=== PATIENT | male | born 1980 | race Two or more races ===

== ENCOUNTER 2021-09-12 19:22 | Emergency (ER) | payer OTHER, SELFPAY ==
[2021-09-12 19:54] VITALS: BP 99/62; PULSE 81; RESP 18; TEMP 36.3; O2SAT 100; BMI 22.6
[2021-09-12 21:27] VITALS: BP 124/77; PULSE 81; TEMP 36.4; O2SAT 98
--- NOTE | 2021-09-12 21:56 | ED_ITS ---
HPI - General Adult General Chief complaint: Skin/Abscess/Foreign Body Stated complaint: ? Rash Time Seen by Provider: 09/12/21 21:56 Source: patient Mode of arrival: ambulatory Limitations: no limitations History of Present Illness HPI narrative: 41-year-old male presenting to the emergency department with complaints of a rash to his left upper extremity, on the inside of the elbow, patient tells me this is been going on for 3 days and is very itchy. He tells me that while in the waiting room he started experiencing nausea, vomiting and some abdominal discomfort. Tells me he vomited few times, vomit did not come taken blood. He tells me he was feeling fine before he was here. He reports he has not eaten much today. Patient is homeless. Denies fevers, chills, chest pain, shortness of breath, changes in bowel habits, changes in urination, recent sick contacts. Onset (ago): day(s) (3) Related Data Previous Rx's Medication Instructions Recorded prednisone 20 mg tablet 40 mg PO DAILY 5 days #10 tabs 09/12/21 ondansetron 4 mg disintegrating 4 mg PO Q6H PRN nausea and 09/13/21 tablet vomiting #14 tabs Allergies Allergy/AdvReac Type Severity Reaction Status Date / Time No Known Allergies Allergy Unverified 10/24/19 17:29 Review of Systems Review of Systems: Constitutional : No Weight loss, No Fever, No Chills, No Fatigue, No Malaise ENT/Mouth : No sore throat, No Rhinorrhea Eyes: No Eye Pain, No Swelling, No Redness Cardiovascular : No Chest Pain, No SOB, No Dyspnea on Exertion, No Orthopnea, No Edema, No Palpitations Respiratory : No Cough, No Sputum, No Wheezing Gastrointestinal : + Nausea, + Vomiting, No Diarrhea, No Constipation, + abdominal Pain, No Hematochezia, No Melena Genitourinary : No Dysuria, No Urinary Frequency, No Hematuria, Musculoskeletal : No joint pain, No Myalgias, No Joint Swelling Skin : No Skin Lesions, + rash Neuro : No Weakness, No Numbness, No Dizziness, No Headache All other systems reviewed and are negative Yes all other systems are reviewed and are negative [facility] Past Medical History Attestation statement: The following information was validated with the patient. Source: old records reviewed and nursing notes reviewed Social History Social History Advance Directives: No Advance Directives Information Provided: No Physical Exam ED Vital Signs: Vital Signs - 24 hr 09/12/21 19:54 09/12/21 21:27 Temperature 97.3 F 97.6 F Pulse Rate 81 81 Respiratory Rate 18 Blood Pressure 99/62 124/77 Pulse Oximetry 100 98 Oxygen Delivery Method Room Air Room Air BMI result Body Mass Index 22.6 vss Appearance: Alert.? Oriented X3.? No acute distress.? Head: Normocephalic, atraumatic, no step-offs or deformities Neck: Normal inspection.? Neck supple.? CVS: Normal heart rate and rhythm.? Pulses normal.? Respiratory: No respiratory distress.? Breath sounds normal.? Abdomen: Soft and nontender.? Skin: Skin warm and dry.? Normal skin color.? Normal skin turgor.? Extremities: No lower extremity edema.? No calf ttp. 5/5 strength to bilateral upper and lower extremities + left inner elbow with errythema and excoriations. Neuro: Oriented X 3.? No motor deficit.? No sensory deficit. CN 2-12 intact Course Reevaluation(s) Reevaluation #1: Patient with slight leukocytosis likely secondary to nausea and vomiting. No acute electrolyte abnormalities requiring intervention. Patient is feeling better after Zofran. Patient tolerating p.o. Time: 01:55 Reevaluation #2: Upon re-evaluation patient continues to have no abdominal tenderness to palpation. Tells us he is feeling much better. He is tolerating p.o., drinking a diane pedrito and eating a few sandwiches. At this time patient will be discharged home with Zofran, prednisone for rash. I feel comfortable discharge home Time: 01:59 Medical Decision Making [facility] Narrative Medical decision making narrative: [id number] 41-year-old male presents with rash times 3 days. Also tells me he has been experiencing nausea vomiting and abdominal discomfort since he got to the emergency department however he tells me he has not eaten much today. Physical exam with slight erythema to the inside of left elbow, no overlying calor, some excoriations from patient it itching. Full range of motion to bilateral elbows. 2+ radial pulses equal bilateral. Likely rash or contact dermatitis, unlikely septic joint. No pain with palpation of abdomen, unlikely acute abdomen, appendicitis, diverticulitis or cholecystitis. Plan at this time to obtain basic labs, urine, will give Zofran for nausea and vomiting. Medical Records Medical records reviewed: Yes I reviewed the patient's medical records. Lab Data Lab results reviewed: Yes I reviewed the patient's lab results. Result diagrams: 09/12/21 23:13 09/12/21 23:13 Labs: Lab Results 09/12/21 09/12/21 Range/Units 23:13 23:13 WBC 12.8 H (4.8-10.8) X10*3/uL RBC 3.74 L (4.60-5.80) X10*6/uL Hgb 12.6 L (14.0-18.0) g/dl Hct 38.6 L (42.0-52.0) % MCV 103.2 H (80.0-98.0) fL MCH 33.7 H (27.0-33.0) pg MCHC 32.6 (31.0-36.0) g/dl RDW 11.9 (11.0-16.0) % Plt Count 286 (160-400) X10*3/uL MPV 9.5 (9.4-12.4) fL Immature Gran % (Auto) 0.2 (0.0-0.4) % Neut % (Auto) 80.8 H (45-73) % Lymph % (Auto) 12.4 L (20-40) % [place] % (Auto) 3.7 (2-11) % Eos % (Auto) 2.7 (0-4) % Baso % (Auto) 0.2 (0-2) % Lymph # (Auto) 1.6 (1.2-4.9) X10*3/uL [place] # (Auto) 0.5 (0.1-1.2) X10*3/uL Eos # (Auto) 0.3 (0.0-0.4) X10*3/uL Baso # (Auto) 0.0 (0.0-0.2) X10*3/uL Abs Immat Gran (auto) 0.03 (0.00-0.03) X10*3/uL Absolute Neuts (auto) 10.4 H (2.0-8.3) x10*3/uL Absolute Nucleated RBC 0.000 (0.0-0.012) X10*3/uL Nucleated RBC % (auto) 0.0 (0.0-0.2) /100WBC Sodium 142 (135-145) mmol/L Potassium 3.9 (3.3-5.1) mmol/L Chloride 105 (96-108) mmol/L Carbon Dioxide 29 (22-29) mmol/L Anion Gap 12 (12-20) BUN 15 (9-16) mg/dL Creatinine 0.83 (0.5-1.4) mg/dL Estim Creat Clear Calc 105.2 Estimated GFR > 60 Random Glucose 92 (60-115) mg/dL Calcium 8.8 (8.4-10.2) mg/dL Total Bilirubin 1.3 H (0.0-1.0) mg/dL AST 17 (5-37) U/L ALT 15 (0-40) U/L Alkaline Phosphatase 62 (39-117) U/L Total Protein 6.8 (6.5-8.0) g/dL Albumin 4.3 (3.5-5.0) g/dL Lipase 21 (8-78) U/L Critical Care Time Critical Care Time Critical Care Time: No Discharge Plan Discharge Clinical Impression: Rash, Epigastric pain, Nausea & vomiting Patient Disposition: Home, Self-Care Additional Instructions: Take your medications as prescribed. If you were prescribed antibiotics today, it is important that you take your medication to their entirety, do not skip any doses, do not finish them early. Follow-up with your primary care provider this week. Return to the emergency department with new or worsening symptoms. Such as fevers, chills, chest pain, shortness of breath, nausea, vomiting, dizziness, headache, vision changes, lethargy In case of emergency call 911 Prescriptions: New prednisone 20 mg tablet 40 mg PO DAILY 5 Days Qty: 10 0RF ondansetron 4 mg tablet,disintegrating 4 mg PO Q6H PRN (Reason: nausea and vomiting) Qty: 14 0RF Referrals: Physician,None [Primary Care Provider] - 2 days Stand Alone Forms: Work/School Release
[2021-09-12] MEDS: Ondansetron ODT 4 MG TAB.RAPDIS TRANSLINGU (22:29)
[2021-09-12 23:18] LABS: Basophils Percent Auto 0.2 % (0-2); Eosinophils Absolute Auto 0.3 X10*3/uL (0.0-0.4); Eosinophils Percent Auto 2.7 % (0-4); Hematocrit 38.6 % (42.0-52.0); Hemoglobin 12.6 g/dl (14.0-18.0); Imm Gran Abs Auto 0.03 X10*3/uL (0.00-0.03); Imm Gran Pct Auto 0.2 % (0.0-0.4); Lymphocytes Absolute Auto 1.6 X10*3/uL (1.2-4.9); Lymphocytes Percent Auto 12.4 % (20-40); MANUAL DIFF FLAG NO; Mean Corpuscular HGB Conc 32.6 g/dl (31.0-36.0); Mean Corpuscular Hemoglobin 33.7 pg (27.0-33.0); Mean Corpuscular Volume 103.2 fL (80.0-98.0); Mean Platelet Volume 9.5 fL (9.4-12.4); Monocytes Absolute Auto 0.5 X10*3/uL (0.1-1.2); Monocytes Percent Auto 3.7 % (2-11); Neutrophils Absolute Auto 10.4 x10*3/uL (2.0-8.3); Neutrophils Percent Auto 80.8 % (45-73); Platelet Count 286 X10*3/uL (160-400); Red Blood Count 3.74 X10*6/uL (4.60-5.80); Red Cell Distribution Width 11.9 % (11.0-16.0); White Blood Count 12.8 X10*3/uL (4.8-10.8)
[2021-09-12 23:38] LABS: Alanine Aminotransferase 15 U/L (0-40); Albumin Level 4.3 g/dL (3.5-5.0); Alkaline Phosphatase 62 U/L (39-117); Anion Gap 12 (12-20); Aspartate Amino Transferase 17 U/L (5-37); Bilirubin Total 1.3 mg/dL (0.0-1.0); Blood Urea Nitrogen 15 mg/dL (9-16); Calcium 8.8 mg/dL (8.4-10.2); Carbon Dioxide 29 mmol/L (22-29); Chloride 105 mmol/L (96-108); Creatinine Clr Calc Pharmacy 105.2; Estimated Glomerular Filt Rate > 60; Glucose Random 92 mg/dL (60-115); Lipase 21 U/L (8-78); Potassium 3.9 mmol/L (3.3-5.1); Sodium 142 mmol/L (135-145); Total Protein 6.8 g/dL (6.5-8.0)
== END 2021-09-13 02:19 | disposition home or self-care (01) ==
PROVIDERS: Physician Assistant; Emergency Provider Student in an Organized Health Care Education/Training Program
DX: R21 Rash and other nonspecific skin eruption (principal); R10.13 Epigastric pain; R11.2 Nausea with vomiting, unspecified; D72.829 Elevated white blood cell count, unspecified
CPT/HCPCS: 36415; 80053; 83690; 85025; 99283; 99284

== ENCOUNTER 2022-08-08 10:51 | Emergency (ER) | payer OTHER, SELFPAY ==
[2022-08-08 10:54] VITALS: BP 102/60; PULSE 55; RESP 16; TEMP 36.8; O2SAT 99; BMI 23.5
== END 2022-08-08 14:01 | disposition left against medical advice (07) ==
LOC: HO.ED 13:59
PROVIDERS: Emergency Provider Emergency Medicine
DX: R10.31 Right lower quadrant pain (principal)
CPT/HCPCS: 36415; 80053; 80307; 85025; 99281; 99283

== ENCOUNTER 2022-11-27 04:51 | Inpatient (IN) | payer OTHER, SELFPAY ==
[2022-11-27] VITALS (11 sets, daily range): BP systolic 101–156; BP diastolic 47–92; PULSE 74–127; RESP 13–22; TEMP 36.7–37.1; O2SAT 95–98; BMI 27.5
--- NOTE | 2022-11-27 05:26 | PC.NURSE ---
Patient arrived via EMS, patient was on stretcher in 13H. This RN requested patient take his jacket off so this RN can take blood pressure. Pt removed jacket, no jewelry on patient besides watch on L wrist and neck chain on neck. This RN took patients vitals then requested that security assist with him changing over. Pt agreeable to filter changer, needed bilingual interpreter assistance. Billy and Camilo from security assisted patient with changeover. Pt came out from bathroom and sat in chair in bed 13. Patient reports that he had a $5000 bracelet that he wants. This RN explained that he cannot have his belongings as they are going to security. Pt continued to ask for bracelet, this RN continued to explain that all of his belongings are in security and will be kept there until discharge. Pt became visibly upset, yelling that he wants his bracelet. This RN and security reviewed belongings, no bracelet was found in either belonging bag. This information was conveyed to patient, pt became visibly upset, voicing his concern that one of the employees stole it. He then accused one of the patient sitters of going into the bathroom and taking it from the bathroom.
--- NOTE | 2022-11-27 05:45 | ECG_ITS ---
Test Reason : Tachycardia, cocaine use Blood Pressure : / mmHG Vent. Rate : 115 BPM Atrial Rate : 115 BPM P-R Int : 136 ms QRS Dur : 082 ms QT Int : 316 ms P-R-T Axes : 055 -16 048 degrees QTc Int : 437 ms Sinus tachycardia Otherwise normal ECG No previous ECGs available Referred By: Jero Romero Electronically Signed By:MAURY GONZALEZ MD
--- NOTE | 2022-11-27 05:48 | ED_ITS ---
HPI - Altered Mental Status General Chief Complaint: Behavioral Concerns Stated Complaint: drug use Time Seen by Provider: 11/27/22 05:36 Source: patient Mode of arrival: EMS Limitations: language barrier (Patient's 1st language is Greek. He does speak Nauruan. jitney driver used) History of Present Illness HPI narrative: 42-year-old male brought to emergency department by ambulance for evaluation of unusual behavior. According to nursing notes, the patient was walking around a neighborhood knocking and doors when someone called the police. The patient told the police that he did use cocaine and he was brought to the emergency department by ambulance for evaluation. Patient told me that he has been sniffing cocaine 2 g 2 times a day for 2 weeks he states that the cocaine is too strong any feels very high. He denies auditory or visual hallucinations. States that his heart was beating very fast but he denied chest pain. On presentation the patient appeared to be agitated and accused staff of stealing 1 of his bracelets. Related Data Previous Rx's Medication Instructions Recorded prednisone 20 mg tablet 40 mg (2 x 20 mg) PO DAILY 5 days 09/12/21 #10 tabs ondansetron 4 mg disintegrating 4 mg PO Q6H PRN nausea and 09/13/21 tablet vomiting #14 tabs Allergies Allergy/AdvReac Type Severity Reaction Status Date / Time No Known Allergies Allergy Unverified 10/24/19 17:29 Review of Systems Review of Systems: Yes all other systems are reviewed and are negative [facility] Past Medical History [facility] Narrative: Past medical history: Heart murmur, cocaine use disorder, heroin use disorder. Social history: He does smoke cigarettes. He does drink alcohol. He states he sniffs cocaine and heroin daily. Social History Social History Smoked in Last 30 Days: No Use of substances other than those prescribed or required for medical reasons: Yes Substance Use Type: Crack/Cocaine Advance Directives: No Advance Directives Information Provided: No Physical Exam ED Vital Signs: Vital Signs - 24 hr 11/27/22 04:54 11/27/22 06:15 11/27/22 06:30 Temperature 98.0 F Pulse Rate 127 H Respiratory Rate 16 22 H 20 Blood Pressure 156/92 H Pulse Oximetry 96 Oxygen Delivery Method Room Air 11/27/22 06:45 11/27/22 06:50 11/27/22 07:04 Temperature Pulse Rate 102 H 87 Respiratory Rate 20 14 17 Blood Pressure 101/47 L 115/53 L Pulse Oximetry 95 95 Oxygen Delivery Method Room Air Room Air BMI result Body Mass Index 27.5 Vital signs revealed elevated blood pressure 156/92, elevated heart rate 120 sat Exam: General: Awake, patient does appear to be hyperactive, he was agitated secondary to the believe that someone stole his bracelet Head: Normocephalic, atraumatic EENT: PERRL, Lids normal, sclera normal, conjunctiva normal, nose normal , ears normal, throat without erythema or exudates Neck: Supple, no adenopathy, no trachea midline or C-spine tenderness Lung: breath sounds symmetric, no wheezing, rales or rhonchi Chest: symmetric movement, nontender Heart: Tachycardia normal S1-S2, no murmurs rubs or gallops Abdomen: Soft, non-tender, nondistended, normal bowel sounds Back: no vertebral tenderness, no CVAT Extremities: no deformities, moves all extremities symmetrically Skin: no rashes, no lesion, normal color and warmth Neuro: Awake, alert, oriented, normal speech, cranial nerves intact, moves all extremities symmetrically Psych: By productive, agitated Medications Administered Discontinued Medications Generic Name Dose Route Start Last Admin Trade Name Gerry PRN Reason Stop Dose Admin Diphenhydramine HCl 50 mg 11/27/22 06:02 11/27/22 06:23 Diphenhydramine Hcl 25 Mg Capsule PO 11/27/22 06:03 Not Given ONCE ONE Diphenhydramine HCl 50 mg 11/27/22 07:01 11/27/22 06:15 Diphenhydramine Hcl 50 Mg/Ml Vial IM 11/27/22 07:02 50 mg ONCE ONE Administration Haloperidol 10 mg 11/27/22 06:02 11/27/22 06:25 Haloperidol 5 Mg Tablet PO 11/27/22 06:03 Not Given ONCE ONE Haloperidol Lactate 10 mg 11/27/22 07:01 11/27/22 06:15 Haloperidol Lactate 5 Mg/Ml Vial IM 11/27/22 07:02 10 mg STAT STA Administration Sodium Chloride 1,000 mls @ 999 mls/hr 11/27/22 05:44 11/27/22 06:25 Ns IV 11/27/22 06:44 Not Given .Q1H1M STA Lorazepam 2 mg 11/27/22 06:02 11/27/22 06:25 Lorazepam 1 Mg Tablet PO 11/27/22 06:03 Not Given ONCE STA Lorazepam 2 mg 11/27/22 07:01 11/27/22 06:15 Lorazepam 2 Mg/Ml Vial IM 11/27/22 07:02 2 mg STAT STA Administration Medical Decision Making Medical Decision Making [facility] Narrative: 42-year-old male with history of heroin see emergency department after having unusual behavior, he was walking around in the neighborhood knocking on doors. Patient was brought to emergency department by ambulance and police escort. He is not on a [address]. Patient states that he has been using intranasal cocaine and heroin at least twice a day for 2 weeks. Patient was agitated when he got in the emergency department but was pleasant and cooperative when I interviewed him. Physical exam did reveal elevated blood pressure and elevated pulse secondary to his cocaine use. Following evaluation was ordered by me: CBC, CMP, troponin, PTT, urine drug screen, CK, urinalysis, EKG. The patient is refusing IV fluid and IV medications but he did agree to taking oral medications. Patient was ordered to get Haldol 10 mg orally, Ativan 2 mg orally and Benadryl 50 mg orally 07:23 Start physician observation: The patient refused oral medications. While he was talking to the security staff, he told him that he needed some time, he became agitated he appeared to be very paranoid and then try to run out of the emergency department. Patient was stopped by security chest as he was trying to get out of the emergency department. The patient was placed on a stretcher, brought back to his room, placed in 4 point restraint in order to protect him from harming himself and from harming the staff. Patient was medicated with Haldol 10 mg IM, Benadryl 50 mg IM and Ativan 2 mg IM. The patient did struggle significantly in order to be restrained therefore I ordered normal saline IV x2 L to treat possible rhabdomyolysis Labs are pending for draw. Patient's urinalysis was positive for nitrates, leukocyte esterase. Microscopic analysis revealed greater than 50 WBCs, 3-5 squamous cells 4+ bacteria suggested they may have a urinary tract infection, therefore I ordered ceftriaxone 1 g IV. Urine tox screen was positive for opiates, fentanyl, cocaine. At the end of my shift patient's care was turned over to my colleague, Dr. Olga Vigil Differential Diagnosis Differential Diagnoses: The differential diagnosis associated with the presentation includes Differential diagnosis includes was not limited to cocaine use disorder, heroin use disorder, rhabdomyolysis, myocardial infarction, myocardial ischemia Admission/Observation Consideration of admission/observation: Escalation of care including admission/ observation considered Lab Data Labs: Lab Results 11/27/22 Range/Units 05:44 Urine Color Yellow Urine Appearance Cloudy Urine pH 6.0 (5.0-9.0) Ur Specific [place] 1.015 (1.005-1.025) Urine Protein 100 (2+) H (Neg-Trace) mg/dL Urine Glucose (UA) Negative (Negative) mg/dL Urine Ketones Negative (Negative) mg/dL Urine Blood Trace H (Negative) Urine Nitrite Positive H (Negative) Ur Leukocyte Esterase Moderate (2+) H (Negative) Urine RBC 0-2 (0-2) /HPF Urine WBC >50 H (0-5) /HPF Ur Squamous Epith Cells 3-5 (0-2) /HPF Urine Bacteria 4+ (None Seen) Hyaline Casts 11-20 (0-2) /LPF Urine Opiates Screen POSITIVE H (Not Detect) Urine Fentanyl Screen POSITIVE H (Not Detect) Ur Barbiturates Screen Not Detected (Not Detect) Ur Phencyclidine Scrn Not Detected (Not Detect) Ur Amphetamines Screen Not Detected (Not Detect) U Benzodiazepines Scrn Not Detected (Not Detect) Urine Cocaine Screen POSITIVE H (Not Detect) U Marijuana (THC) Screen Not Detected (Not Detect) Independent Interpretation I performed an independent interpretation of an: EKG Interpretation: My independent interpretation patient's 12 EKG is as follows: Sinus tachycardia with a rate of 115, normal AR interval, QRS duration, QTC interval, no ST elevation, no ST segment depression, no significant T wave abnormalities, no PACs, no PVCs -except for the tachycardia this is a normal EKG Discharge Plan Discharge Clinical Impression: Agitation, Cocaine use, Heroin use, Acute UTI Patient Disposition: Still a Patient Prescriptions: No Action prednisone 20 mg tablet 40 mg PO DAILY 5 Days Qty: 10 0RF ondansetron 4 mg tablet,disintegrating 4 mg PO Q6H PRN (Reason: nausea and vomiting) Qty: 14 0RF
[2022-11-27 05:50] LABS: Appearance Urine Cloudy; Color Urine Yellow; Glucose Urine UA Negative (Negative); Leukocyte Esterase Urine Moderate (2+) (Negative); Nitrite Urine Positive (Negative); Specific Gravity - Urine 1.015 (1.005-1.025); UMIC TRIGGER UACC YES; Urine Blood Trace (Negative); Urine Ketones Negative (Negative); Urine Protein 100 (2+) mg/dL (Neg-Trace)
[2022-11-27 05:58] LABS: Amphetamine Screen Urine Not Detected (Not Detect); Barbiturates, Urine Not Detected (Not Detect); Benzodiazepines Screen Urine Not Detected (Not Detect); Cannabinoid Screen Urine Not Detected (Not Detect); Cocaine Screen Urine POSITIVE (Not Detect); Fentanyl, urine POSITIVE (Not Detect); Opiate Screen Urine POSITIVE (Not Detect); Phencyclidine Screen Urine Not Detected (Not Detect)
[2022-11-27 06:06] LABS: Bacteria Urine 4+ (None Seen); RBC Urine 0-2 /HPF (0-2); UACC Culture Trigger YES; WBC Urine >50 /HPF (0-5)
[2022-11-27] MEDS: Haloperidol Lactate 5 MG/ML VIAL 10 MG IM (06:15)
[2022-11-27] MEDS: diphenhydrAMINE HCL 50 MG/ML VIAL IM (06:15)
[2022-11-27] MEDS: LORazepam 2 MG/ML VIAL IM (06:15)
--- NOTE | 2022-11-27 07:06 | PC.NURSE ---
Pt attempted to run for door, security and Dr. Romero stopped patient. Pt restrained on floor, transferred to stretcher. Pt was subsequently four point restrained by multiple security guards, this RN, multiple ED techs and MD. Pt was given IM injections. Pt continued to be agitated for a while after. Attempting to slip restraints, whipping arms and head back and forth. Pt is now asleep
--- NOTE | 2022-11-27 07:10 | PC.NURSE ---
Patient resting comfortably, breathing even and unlabored. Restraints remain in place. 1:1 at bedside
--- NOTE | 2022-11-27 07:34 | PC.NURSE ---
this RN attempted to release one hand from restraints for IV, pt became agitated, attempting to leave again. restraint was re-applied with assistance from security. 20g IV placed in RFA
[2022-11-27] MEDS: 0.9 % Sodium Chloride 1,000 ML 999 ML IVCONT ×2 (07:36→09:12)
[2022-11-27 07:42] LABS: MANUAL DIFF FLAG NO
[2022-11-27 07:46] LABS: Basophils Percent Auto 0.1 % (0-2); Hematocrit 35.1 % (42.0-52.0); Hemoglobin 11.9 g/dl (14.0-18.0); Imm Gran Abs Auto 0.12 X10*3/uL (0.00-0.03); Imm Gran Pct Auto 0.6 % (0.0-0.4); Lymphocytes Absolute Auto 1.6 X10*3/uL (1.2-4.9); Mean Corpuscular HGB Conc 33.9 g/dl (31.0-36.0); Mean Corpuscular Hemoglobin 33.7 pg (27.0-33.0); Mean Corpuscular Volume 99.4 fL (80.0-98.0); Mean Platelet Volume 9.1 fL (9.4-12.4); Monocytes Absolute Auto 0.9 X10*3/uL (0.1-1.2); Monocytes Percent Auto 4.5 % (2-11); Neutrophils Absolute Auto 16.9 x10*3/uL (2.0-8.3); Neutrophils Percent Auto 86.8 % (45-73); Platelet Count 309 X10*3/uL (160-400); Red Blood Count 3.53 X10*6/uL (4.60-5.80); Red Cell Distribution Width 11.6 % (11.0-16.0); White Blood Count 19.4 X10*3/uL (4.8-10.8)
[2022-11-27 08:13] LABS: Alanine Aminotransferase 14 U/L (0-40); Albumin Level 4.2 g/dL (3.5-5.0); Alkaline Phosphatase 73 U/L (39-117); Anion Gap 16 (12-20); Aspartate Amino Transferase 30 U/L (5-37); Bilirubin Total 0.9 mg/dL (0.0-1.0); Blood Urea Nitrogen 10 mg/dL (9-16); Calcium 9.4 mg/dL (8.4-10.2); Carbon Dioxide 23 mmol/L (22-29); Chloride 103 mmol/L (96-108); Creatinine Clr Calc Pharmacy 99.8; Estimated Glomerular Filt Rate > 60; Ethanol < 10 mg/dL; Glucose Random 87 mg/dL (60-115); Potassium 3.7 mmol/L (3.3-5.1); Sodium 138 mmol/L (135-145); Total Protein 7.2 g/dL (6.5-8.0)
--- NOTE | 2022-11-27 09:09 | PC.NURSE ---
LL restraint removed at 0845. RL restraint removed at 9am. Patient sleeping, calm and cooperative at this time
--- NOTE | 2022-11-27 09:39 | PC.NURSE ---
All restraints removed as of 9:30am, patient calm and cooperative, agreeable to labs being obtained
[2022-11-27 10:32] LABS: Lactic Acid 1.1 mmol/L (0.5-2.0)
[2022-11-27] MEDS: cefTRIAXone sodium 1 GM in 0.9 % Sodium Chloride 50 ML IV (10:49)
[2022-11-27 12:48] LABS: MANUAL DIFF FLAG NO
[2022-11-27 12:55] LABS: Basophils Percent Auto 0.2 % (0-2); Eosinophils Percent Auto 0.1 % (0-4); Hematocrit 37.2 % (42.0-52.0); Hemoglobin 12.1 g/dl (14.0-18.0); Imm Gran Abs Auto 0.08 X10*3/uL (0.00-0.03); Imm Gran Pct Auto 0.5 % (0.0-0.4); Lymphocytes Absolute Auto 2.5 X10*3/uL (1.2-4.9); Lymphocytes Percent Auto 13.9 % (20-40); Mean Corpuscular HGB Conc 32.5 g/dl (31.0-36.0); Mean Corpuscular Hemoglobin 33.4 pg (27.0-33.0); Mean Corpuscular Volume 102.8 fL (80.0-98.0); Mean Platelet Volume 9.3 fL (9.4-12.4); Monocytes Percent Auto 5.7 % (2-11); Neutrophils Absolute Auto 14.1 x10*3/uL (2.0-8.3); Neutrophils Percent Auto 79.6 % (45-73); Platelet Count 308 X10*3/uL (160-400); Red Blood Count 3.62 X10*6/uL (4.60-5.80); Red Cell Distribution Width 11.6 % (11.0-16.0); White Blood Count 17.7 X10*3/uL (4.8-10.8)
--- NOTE | 2022-11-27 13:22 | PC.NURSE ---
Alert and responsive, denies pain, blood work obtained per order, patient able to reposition himself in bed as needed. 1:[address] at bedside
[2022-11-27] MEDS: 0.9 % Sodium Chloride 500 ML 250 ML IVCONT (13:40)
--- NOTE | 2022-11-27 14:24 | PHA.MEDREC ---
Pharmacy Consult ? Medication Reconciliation Pharmacy has completed the medication reconciliation.
--- NOTE | 2022-11-27 15:48 | MHC.EDTECH ---
THIS PCT ASSUMED CARE OF PT AT 1500 ,VITALS TAKEN ,PT BELONGINGS LIST AMENDED ,PT SLEEPING ,PATIENT OBSERVER AT BEDSIDE .
--- NOTE | 2022-11-27 17:11 | P.HPHOSP_ITS ---
History of Present Illness Date of Service: 11/27/22 Attending physician on admission: Alex Jovel Chief Complaint: Altered mental status Pt is a 42-year-old male with a PMH significant for?heart murmur and polysubstance use disorder who presents to the ED by EMS for evaluation of unusual behavior. Patient was apparently walking around the neighborhood and knocking on random doors when someone called the police. Patient reported to the police he had been using cocaine so they brought him to the ED for further evaluation on a Section 12. Patient currently somnolent but arousable, difficult to interview as he continually drifts to sleep before fully answering questions. HPI the us supplemented by chart and provider review. Patient has apparently been snorting 2+ g twice a day for the past 2 weeks plus an unknown amount of heroin. His tox screen was also positive for opiates and ?and fentanyl. Patient agitated when he got to the the ED, but initially cooperative for interview and exam. However, patient refused IVF and IV medications though initially agreed to taking oral medications, though he then backtracked and refused oral medications when they were presented to him. Patient then became paranoid and agitated and try to run out of the emergency department. Was stopped by security and brought back to the ED where he was placed in 4 point restraints in order to protect him from harming himself and harming staff members. Was medicated with Haldol 10 mg IM, Benadryl 50 mg IM, and Ativan 2 mg IM. During these instances patient struggled significantly. In the ED patient was afebrile but tachycardic up to 127, and tachypneic to 22. Labs were significant for leukocytosis of 19.4, H&H 11.9/35.1, CPK 1076 with repeat 5 hours later of 2891. Electrolytes WNL. Hepatic function, renal function WNL. UA positive for UTI. Tox screen positive for opiates, fentanyl, and cocaine. Ethyl alcohol < 10. EKG demonstrated sinus tachycardia [address] elevations or depressions. Pt was treated with Haldol, Ativan, Benadryl, IVF, and ceftriaxone. Pt will be admitted to the hospital for treatment and further evaluation of rhabdomyolysis and UTI. Patient is on a Section 12 and will need medical clearance before admittance to the psychiatric unit. Review of Systems 2 Review of Systems: Unable to obtain due to patient's mentation [facility] Social History Smoked in Last 30 Days: No Use of substances other than those prescribed or required for medical reasons: Yes Substance Use Type: Crack/Cocaine Advance Directives: No Advance Directives Information Provided: No Meds Allergies Allergy/AdvReac Type Severity Reaction Status Date / Time No Known Allergies Allergy Unverified 10/24/19 17:29 Active Medications: Current Medications Acetaminophen (Acetaminophen 325 Mg Tablet) 650 mg PO Q6H PRN PRN Reason: Pain, Mild (Pain Scale 1-3) Benzonatate (Benzonatate 100 Mg Capsule) 100 mg PO TID PRN PRN Reason: Cough Docusate Sodium (Docusate Sodium 100 Mg Capsule) 100 mg PO DAILY PRN PRN Reason: Constipation Enoxaparin Sodium (Enoxaparin Sodium 40 Mg/0.4 Ml Syringe) 40 mg SUBCUT Q24H BUTCH Ceftriaxone Sodium 1 gm/ (Sodium Chloride) 50 mls @ 100 mls/hr IV Q24H BUTCH Sodium Chloride (Ns) 1,000 mls @ 100 mls/hr IVCONT .Q10H BUTCH Melatonin (Melatonin 3 Mg Tablet) 6 mg PO BEDTIME PRN PRN Reason: Insomnia Ondansetron HCl (Ondansetron Hcl 4 Mg/2 Ml Vial) 4 mg IVPUSH Q8H PRN PRN Reason: Nausea and Vomiting Sodium Chloride (0.9 % Sodium Chloride Flush 3 Ml Syringe) 3 ml IVFLUSH QSHIFT BUTCH Home Medications Medication Instructions Recorded Confirmed Last Taken Type No Known Home Meds 11/27/22 11/27/22 Unknown History Physical Exam 2 Vital Signs and Narrative: Vital Signs: Last Vital Signs Temp 98.1 F 11/27/22 15:47 Pulse 74 11/27/22 15:47 Resp 16 11/27/22 15:47 BP 117/74 11/27/22 15:47 Pulse Ox 98 11/27/22 15:47 O2 Del Method Room Air 11/27/22 15:47 BMI result Body Mass Index 27.5 General: AOx3, somnolent but arousable, cooperative, no acute distress. Drifts in and out of sleep during interview, does not fully answer most questions Resp: CTA bilaterally CVS: S1, S2, RRR. 2/6 systolic murmur GI: +BS, NT, no distention Skin: No rash Neuro: Cranial nerves II-XII grossly intact bilaterally. Motor grossly intact bilaterally Extremities: No edema Results Labs 11/27/22 12:43 11/27/22 07:38 Labs: Laboratory Results - last 24 hr 11/27/22 11/27/22 11/27/22 05:44 07:38 10:06 MCV 99.4 H MCH 33.7 H MCHC 33.9 RDW 11.6 Plt Count 309 MPV 9.1 L Immature Gran % (Auto) 0.6 H Neut % (Auto) 86.8 H Lymph % (Auto) 8.0 L Glenn % (Auto) 4.5 Eos % (Auto) 0.0 Baso % (Auto) 0.1 Lymph # (Auto) 1.6 Glenn # (Auto) 0.9 Eos # (Auto) 0.0 Baso # (Auto) 0.0 Abs Immat Gran (auto) 0.12 H Absolute Neuts (auto) 16.9 H Absolute Nucleated RBC 0.000 Nucleated RBC % (auto) 0.0 APTT 28.0 Anion Gap 16 Estim Creat Clear Calc 99.8 Estimated GFR > 60 Random Glucose 87 Lactic Acid 1.1 Calcium 9.4 Total Bilirubin 0.9 AST 30 ALT 14 Alkaline Phosphatase 73 Total Creatine Kinase 1076 H Total Protein 7.2 Albumin 4.2 Urine Color Yellow Urine Appearance Cloudy Urine pH 6.0 Ur Specific [place] 1.015 Urine Protein 100 (2+) H Urine Glucose (UA) Negative Urine Ketones Negative Urine Blood Trace H Urine Nitrite Positive H Ur Leukocyte Esterase Moderate (2+) H Urine RBC 0-2 Urine WBC >50 H Ur Squamous Epith Cells 3-5 Urine Bacteria 4+ Hyaline Casts 11-20 Urine Opiates Screen POSITIVE H Urine Fentanyl Screen POSITIVE H Ur Barbiturates Screen Not Detected Ur Phencyclidine Scrn Not Detected Ur Amphetamines Screen Not Detected U Benzodiazepines Scrn Not Detected Urine Cocaine Screen POSITIVE H U Marijuana (THC) Screen Not Detected Ethyl Alcohol < 10 11/27/22 12:43 MCV 102.8 H MCH 33.4 H MCHC 32.5 RDW 11.6 Plt Count 308 MPV 9.3 L Immature Gran % (Auto) 0.5 H Neut % (Auto) 79.6 H Lymph % (Auto) 13.9 L Glenn % (Auto) 5.7 Eos % (Auto) 0.1 Baso % (Auto) 0.2 Lymph # (Auto) 2.5 Glenn # (Auto) 1.0 Eos # (Auto) 0.0 Baso # (Auto) 0.0 Abs Immat Gran (auto) 0.08 H Absolute Neuts (auto) 14.1 H Absolute Nucleated RBC 0.000 Nucleated RBC % (auto) 0.0 APTT Anion Gap Estim Creat Clear Calc Estimated GFR Random Glucose Lactic Acid Calcium Total Bilirubin AST ALT Alkaline Phosphatase Total Creatine Kinase 2891 H Total Protein Albumin Urine Color Urine Appearance Urine pH Ur Specific [place] Urine Protein Urine Glucose (UA) Urine Ketones Urine Blood Urine Nitrite Ur Leukocyte Esterase Urine RBC Urine WBC Ur Squamous Epith Cells Urine Bacteria Hyaline Casts Urine Opiates Screen Urine Fentanyl Screen Ur Barbiturates Screen Ur Phencyclidine Scrn Ur Amphetamines Screen U Benzodiazepines Scrn Urine Cocaine Screen U Marijuana (THC) Screen Ethyl Alcohol Assessment and Plan (1) Rhabdomyolysis: Qualifiers: Rhabdomyolysis type: non-traumatic Qualified Code(s): M62.82 - Rhabdomyolysis Status: Acute (2) Acute UTI: Status: Acute (3) Heroin use: Status: Acute (4) Cocaine use: Status: Acute Plan Pt is a 42-year-old male with a PMH significant for?heart murmur and polysubstance use disorder who presents to the ED by EMS for evaluation of unusual behavior. Brought in on a Section 12 and initially set on psychiatric admission. Pt it became agitated and needed to be restrained and lab showed elevated CPK and acute UTI. Pt will be admitted to the hospital for treatment and further evaluation of rhabdomyolysis and UTI. Patient is on a Section 12 and will need medical clearance before admittance to the psychiatric unit. UTI UA positive for UTI Meets sepsis criteria: Wbc's, tachycardia, tachypnea; lactic acid WNL at 1.1 Patient given IVF, started on broad-spectrum antibiotics in ED Will treat with ceftriaxone, started 11/27/[address] on maintenance fluids Follow cultures Rhabdomyolysis CPK 1076 with repeat elevated at 2891 Etiology unclear: Physically struggling while restrained verses cocaine induced rhabdomyolysis Patient given 3.5L IVF in the ED Will place on maintenance fluids Recheck CPK tomorrow Acute toxic metabolic encephalopathy Patient brought in on a Section 12 after being found wandering around the neighborhood and knocking on doors Unclear etiology: Secondary to UTI versus cocaine/heroin/fentanyl intoxication Patient initially restrained in the ED after becoming agitated and a threat to himself and staff Treat as above Monitor mentation Full Code Attending:?Dr. Jovel DVT Prophylaxis: Lovenox Pt will require a hospitalization of at least two nights for treatment of?and further evaluation of rhabdomyolysis and UTI. Pt will be treated with IVF, IV antibiotics, and need close monitoring of labs. Patient is on a Section 12 and will need medical clearance before admittance to the psychiatric unit. Time Spent With Patient Time: Total time managing care of this patient today ____ minutes. Quality Stroke Does the patient have a stroke diagnosis?: No VTE Prior VTE?: No VTE Risk Level:: Medical - moderate - high VTE Device Contraindication: Treatment Not Indicated VTE Drug Contraindication: N/A - Med Ordered
[2022-11-27] MEDS: 0.9 % Sodium Chloride 1,000 ML 100 ML IVCONT (17:18)
--- NOTE | 2022-11-27 17:24 | PC.NURSE ---
Patient resting comfortably, breathing even and unlabored. VSS. 1:1 at bedside for safety
--- OUTSIDE RECORDS SUMMARY | 2022-11-27 17:25 | XMS_ITS | Continuity of Care Document ---
Author Name Unknown Organization [facility] Address [address] [place] [address]- Care Team Providers Care Abstract Writer Name Role Phone Aylin LIEBERMAN, New Choi Primary Care Physician Encounter [facility] [place] Date(s): 03/27/20 - 04/26/[address] [address]- Allergies, Adverse Reactions, Alerts No Known Medication Allergies Substance Reaction Severity Status NKA Active Immunizations Given and Recorded Vaccine Date Status Refusal Reason influenza virus vaccine, inactivated 03/13/19 Give n tetanus/diphtheria/pertussis, acel(Tdap) 02/10/19 Given Medications amoxicillin-clavulanate 875 mg-125 mg oral tablet 1 tablet, By Mouth, Every 12 hours, # 14 tablet, 0 Refills, Maintenance, 03/13/19 11:37:00 EST, Tablet, [facility] #[id number], 165, cm, 03/13/19 10:56:00 EST, Height, 70.8, kg, 02/11/19 21:53:00 EST, Dry Weight Start Date: 03/13/19 Stop Date: 03/20/19 Status: Ordered citalopram 20 mg oral tablet 20 mg, 1, tablet, By Mouth, Daily in AM, # 14 tablet, Refills 0, Tot. Refills 0, Maintenance, 11/22/17 11:22:48 EDT, Route to Pharmacy Electronically, [id number], [facility] [id number] Start Date: 11/22/17 Stop Date: 12/06/17 Status: Ordered ibuprofen 800 mg oral tablet 800 mg, 1, tablet, By Mouth, Every 8 hours, PRN, # 30 tablet, Refills 0, Tot. Refills 0, Maintenance, Pain , Severe, 03/13/19 11:40:00 EST, Route to Pharmacy Electronically, [facility] #[id number], 165, cm, 03/13/19 10:56:00 EST, Height, 70.8, kg... Start Date: 03/13/19 Status: Ordered melatonin 3 mg oral tablet, extended release 1 tablet = 3 mg, By Mouth, Daily at bedtime, PRN as needed for insomnia, # 60 tablet, 0 Refills, Maintenance, 11/22/17 11:23:13 EDT, ER Tablet, 1 tablet By Mouth Daily at bedtime,PRN:as needed for insomnia Start Date: 11/22/17 Status: Ordered risperiDONE 0.5 mg oral tablet 0.5 mg, 1, tablet, By Mouth, 3 times a day, Daily at 8 am and 2pm, # 42 tablet, Refills 0, Tot. Refills 0, Maintenance, 11/22/17 11:22:50 EDT, Route to Pharmacy Electronically, [id number], [facility] [id number] Start Date: 11/22/17 Stop Date: 12/06/17 Status: Ordered Problem List Condition Effective Dates Status Health Status Inform ant Adjustment disorder(Confirmed) Active Migraine(Confirmed) Active Care Management, Terry Escalante [facility] Care Coordination N/CP [id number](Confirmed) Active Social History Social History Type Response Smoking Status 10 or more cigarette s (1/2 pack or more)/day in last 30 days; Type: Cigarettes; Started at age: 16; entered on: 03/08/19 Sex
--- OUTSIDE RECORDS SUMMARY | 2022-11-27 17:25 | XMS_ITS | Continuity of Care Document ---
Author Name Unknown Organization [facility] Address [address] [place] [address]- Care Team Providers Care Fabrication Inspector Name Role Phone New Viera MD Primary Care Physician ( [phone] [place] [facility] [place] [facility] [id number] Date(s): 05/27/20 - 06/26/[address] [address]- Attending Physician: AdmZuri johns Admitting Physician: Admtr, Ar8 Referring Physician: Admtr, Ar8 Allergies, Adverse Reactions, Alerts No Known Medication Allergies Substance Reaction Severity Status NKA Active Immunizations Given and Recorded Vaccine Date Status Refusal Reason influenza virus vaccine, inactivated 03/13/19 Give n tetanus/diphtheria/pertussis, acel(Tdap) 02/10/19 Given Medications amoxicillin-clavulanate 875 mg-125 mg oral tablet 1 tablet, By Mouth, Every 12 hours, # 14 tablet, 0 Refills, Maintenance, 03/13/19 11:37:00 EST, Tablet, [facility] #[id number], 165, cm, 03/13/19 10:56:00 EST, Height, 70.8, kg, 02/11/19 21:53:00 EST, Dry Weight Start Date: 03/13/19 Stop Date: 03/20/19 Status: Ordered citalopram 20 mg oral tablet 20 mg, 1, tablet, By Mouth, Daily in AM, # 14 tablet, Refills 0, Tot. Refills 0, Maintenance, 11/22/17 11:22:48 EDT, Route to Pharmacy Electronically, [id number], [facility] [id number] Start Date: 11/22/17 Stop Date: 12/06/17 Status: Ordered ibuprofen 800 mg oral tablet 800 mg, 1, tablet, By Mouth, Every 8 hours, PRN, # 30 tablet, Refills 0, Tot. Refills 0, Maintenance, Pain , Severe, 03/13/19 11:40:00 EST, Route to Pharmacy Electronically, [facility] #[id number], 165, cm, 03/13/19 10:56:00 EST, Height, 70.8, [...] 11/22/17 11:22:50 EDT, Route to Pharmacy Electronically, [id number], [facility] [id number] Start Date: 11/22/17 Stop Date: 12/06/17 Status: Ordered Problem List Condition Effective Dates Status Health Status Inform ant Adjustment disorder(Confirmed) Active Migraine(Confirmed) Active Social History Social History Type Response Smoking Status 10 or more cigarette s (1/2 pack or more)/day in last 30 days; Type: Cigarettes; Started at age: 16; entered on: 03/08/19 Sex
--- OUTSIDE RECORDS SUMMARY | 2022-11-27 17:25 | XMS_ITS | Continuity of Care Document ---
Author Name Unknown Organization [facility] Address [address] [place] [address]- Care Team Providers Care Contact Lens Blocker And Cutter Name Role Phone New Viera MD Primary Care Physician [facility] [id number] Date(s): 03/25/20 - 04/26/[address] [address]- Attending Physician: Lew Walters MD Admitting Physician: Lew Walters MD Allergies, Adverse Reactions, Alerts No Known Medication Allergies Substance Reaction Severity Status NKA Active Immunizations Given and Recorded Vaccine Date Status Refusal Reason influenza virus vaccine, inactivated 03/13/19 Give n tetanus/diphtheria/pertussis, acel(Tdap) 02/10/19 Given Medications amoxicillin-clavulanate 875 mg-125 mg oral tablet 1 tablet, By Mouth, Every 12 hours, # 14 tablet, 0 Refills, Maintenance, 03/13/19 11:37:00 EST, Tablet, [facility] #[id number], 165, cm, 03/13/19 10:56:00 EST, Height, 70.8, kg, 02/11/19 21:53:00 EST, Dry Weight Start Date: 03/13/19 Stop Date: 03/20/19 Status: Ordered citalopram 20 mg oral tablet 20 mg, 1, tablet, By Mouth, Daily in AM, # 14 tablet, Refills 0, Tot. Refills 0, Maintenance, 11/22/17 11:22:48 EDT, Route to Pharmacy Electronically, [id number], [facility] [id number] Start Date: 11/22/17 Stop Date: 12/06/17 Status: Ordered ibuprofen 800 mg oral tablet 800 mg, 1, tablet, By Mouth, Every 8 hours, PRN, # 30 tablet, Refills 0, Tot. Refills 0, Maintenance, Pain , Severe, 03/13/19 11:40:00 EST, Route to Pharmacy Electronically, [facility] #[id number], 165, cm, 03/13/19 10:56:00 EST, Height, 70.8, [...] 11/22/17 11:22:50 EDT, Route to Pharmacy Electronically, [id number], [facility] [id number] Start Date: 11/22/17 Stop Date: 12/06/17 Status: Ordered Problem List Condition Effective Dates Status Health Status Inform ant Adjustment disorder(Confirmed) Active Migraine(Confirmed) Active Care Management, Terry granadosdc Care Coordination N/CP [id number](Confirmed) Active Social History Social History Type Response Smoking Status 10 or more cigarette s (1/2 pack or more)/day in last 30 days; Type: Cigarettes; Started at age: 16; entered on: 03/08/19 Sex
--- OUTSIDE RECORDS SUMMARY | 2022-11-27 17:25 | XMS_ITS | Continuity of Care Document ---
Author Name Unknown Organization [facility] Address [address] [place] [address]- Care Team Providers Care Professor Of Oceanography Name Role Phone Not on Staff, PCP Primary Care Physician Unavail able Encounter [facility] [place] Date(s): 02/09/19 - 02/09/[address] [address]- [facility] Discharge Disposition: A-D/C Walkout Attending Physician: Not on Staff, Attending MD Admitting Physician: Not on Staff, Admitting MD Referring Physician: Not on Staff, Referring MD Allergies, Adverse Reactions, Alerts Substance Reaction Severity Status NKA Active Medications citalopram 20 mg oral tablet 20 mg, 1, tablet, By Mouth, Daily in AM, # 14 tablet, Refills 0, Tot. Refills 0, Maintenance, 11/22/17 11:22:48 EDT, Route to Pharmacy Electronically, [id number], [facility] [id number] Start Date: 11/22/17 Stop Date: 12/06/17 Status: Ordered melatonin 3 mg oral tablet, [...] 11/22/17 11:22:50 EDT, Route to Pharmacy Electronically, [id number], [facility] [id number] Start Date: 11/22/17 Stop Date: 12/06/17 Status: Ordered Problem List Condition Effective Dates Status Health Status Inform ant Adjustment disorder(Confirmed) Active Migraine(Confirmed) Active Vital Signs Most recent to oldest [Reference Range]: 1 2 Weight 68.4 kg (02/09/19 1:55 PM) Oxygen Saturation [94-100 %] 99 % (02/09/19 1:55 PM) 100 % (02/09/19 1:46 PM) Pulse Rate [55-90 bpm] 85 bpm (02/09/19 1:55 PM) 78 bpm (02/09/19 1:46 PM) Blood Pressure [90-138/55-84 mm Hg] 124/ 65mm Hg (02/09/19 1:55 PM) Respiratory Rate [16-30 br/min] 16 br/mi n (02/09/19 1:55 PM) 20 br/min (02/09/19 1:46 PM) Temperature [96.8-100.4 DegF] 98.3 DegF (02/09/19 1:55 PM) Mode of Delivery (Oxygen) Room air (02/09/19 1:55 PM) Room air (02/09/19 1:46 PM) Blood pressure sites Arm, right (02/09/19 1:55 PM) Temperature Route Oral (02/09/19 1:55 PM) Dry Weight 68.4 kg (02/09/19 1:55 PM) Weight Obtained Via Standing scale (02/09/19 1:55 PM) Dry Weight Obtained Via Standing scale (02/09/19 1:55 PM)
--- OUTSIDE RECORDS SUMMARY | 2022-11-27 17:26 | XMS_ITS | Continuity of Care Document ---
Author Name Unknown Organization [facility] Address [address] [place] [address]- Care Team Providers Care Billet Sawyer Name Role Phone New Viera MD Primary Care Physician Encounter [facility] [place] Date(s): 03/13/19 - 04/20/[address] [address]- [facility] Attending Physician: Not on Staff, Attending MD Referring Physician: Contractor Jessica HOOPER Allergies, Adverse Reactions, Alerts Substance Reaction Severity Status NKA Active Immunizations Given and Recorded Vaccine Date Status Refusal Reason influenza virus vaccine, inactivated 03/13/19 Give n tetanus/diphtheria/pertussis, acel(Tdap) 02/10/19 Given Medications amoxicillin-clavulanate 875 mg-125 mg oral tablet 1 tablet, By Mouth, Every 12 hours, # 14 tablet, 0 Refills, Maintenance, 03/13/19 11:37:00 EST, Tablet, [facility] #[id number], 165, cm, 03/13/19 10:56:00 EST, Height, 70.8, kg, 02/11/19 21:53:00 EST, Dry Weight Start Date: 03/13/19 Stop Date: 03/20/19 Status: Ordered citalopram 20 mg oral tablet 20 mg, 1, tablet, By Mouth, Daily in AM, # 14 tablet, Refills 0, Tot. Refills 0, Maintenance, 11/22/17 11:22:48 EDT, Route to Pharmacy Electronically, [id number], [facility] [id number] Start Date: 11/22/17 Stop Date: 12/06/17 Status: Ordered ibuprofen 800 mg oral tablet 800 mg, 1, tablet, By Mouth, Every 8 hours, PRN, # 30 tablet, Refills 0, Tot. Refills 0, Maintenance, Pain , Severe, 03/13/19 11:40:00 EST, Route to Pharmacy Electronically, [facility] #[id number], 165, cm, 03/13/19 10:56:00 EST, Height, 70.8, [...] 11/22/17 11:22:50 EDT, Route to Pharmacy Electronically, [id number], [facility] [id number] Start Date: 11/22/17 Stop Date: 12/06/17 Status: Ordered Problem List Condition Effective Dates Status Health Status Inform ant Adjustment disorder(Confirmed) Active Migraine(Confirmed) Active Social History Social History Type Response Smoking Status 10 or more cigarette s (1/2 pack or more)/day in last 30 days; Type: Cigarettes; Started at age: 16; entered on: 03/08/19 Sex
--- OUTSIDE RECORDS SUMMARY | 2022-11-27 17:26 | XMS_ITS | Continuity of Care Document ---
Author Name Unknown Organization [facility] Address [address] [place] [address]- Care Team Providers Care Vest Baster Name Role Phone New Viera MD Primary Care Physician ( [phone] Encounter [facility] AC[facility] R [id number] Date(s): 03/28/19 - 04/07/[address] [address]- [facility] Attending Physician: Zuri Cantrell Admitting Physician: AdmtrZuri Referring Physician: Admtr, Ar8 Allergies, Adverse Reactions, Alerts Substance Reaction Severity Status NKA Active Immunizations Given and Recorded Vaccine Date Status Refusal Reason influenza virus vaccine, inactivated 03/13/19 Give n tetanus/diphtheria/pertussis, acel(Tdap) 02/10/19 Given Medications amoxicillin-clavulanate 875 mg-125 mg oral tablet 1 tablet, By Mouth, Every 12 hours, # 14 tablet, 0 Refills, Maintenance, 03/13/19 11:37:00 EST, Tablet, [facility] #[id number], 165, cm, 03/13/19 10:56:00 EST, Height, 70.8, kg, 02/11/19 21:53:00 EST, Dry Weight Start Date: 03/13/19 Stop Date: 03/20/19 Status: Ordered citalopram 20 mg oral tablet 20 mg, 1, tablet, By Mouth, Daily in AM, # 14 tablet, Refills 0, Tot. Refills 0, Maintenance, 11/22/17 11:22:48 EDT, Route to Pharmacy Electronically, [id number], [facility] [id number] Start Date: 11/22/17 Stop Date: 12/06/17 Status: Ordered ibuprofen 800 mg oral tablet 800 mg, 1, tablet, By Mouth, Every 8 hours, PRN, # 30 tablet, Refills 0, Tot. Refills 0, Maintenance, Pain , Severe, 03/13/19 11:40:00 EST, Route to Pharmacy Electronically, [facility] #[id number], 165, cm, 03/13/19 10:56:00 EST, Height, 70.8, [...] 11/22/17 11:22:50 EDT, Route to Pharmacy Electronically, [id number], [facility] [address] Start Date: 11/22/17 Stop Date: 12/06/17 Status: Ordered Problem List Condition Effective Dates Status Health Status Inform ant Adjustment disorder(Confirmed) Active Migraine(Confirmed) Active Social History Social History Type Response Smoking Status 10 or more cigarette s (1/2 pack or more)/day in last 30 days; Type: Cigarettes; Started at age: 16; entered on: 03/08/19 Sex
--- OUTSIDE RECORDS SUMMARY | 2022-11-27 17:26 | XMS_ITS | Continuity of Care Document ---
Author Name Unknown Organization [facility] ter Address [address] [place] [address]- Care Team Providers Care Wire Sawyer Name Role Phone Not on Staff, PCP Primary Care Physician Unavail able Encounter [facility] Date(s): 02/10/19 - 02/18/[address] [address] Encounter Diagnosis Cellulitis, leg(Final) - 02/10/19 Dog bite of multiple sites(Final) - 02/14/19 Discharge Disposition: A-D/C Home Attending Physician: Annel LIEBERMAN, Yasmany Admitting Physician: Yves LIEBERMAN, Sina P Referring Physician: Not on Staff, Referring MD Allergies, Adverse Reactions, Alerts Substance Reaction Severity Status NKA Active Immunizations Given and Recorded Vaccine Date Status Refusal Reason tetanus/diphtheria/pertussis, acel(Tdap) 02/10/19 Given Medications Augmentin 875 mg-125 mg oral tablet 1 tablet, By Mouth, Every 12 hours, for 2 days, # 4 tablet, 0 Refills, Acute 02/20/19 14:17:00 EST,02/18/19 14:17:00 EST, Tablet, [facility], 165, cm, 02/18/19 5:07:00 EST, Height, 70.8, kg, 02/11/19 21:53:00 EST, Dry Weight Start Date: 02/18/19 Stop Date: 02/20/19 Status: Ordered citalopram 20 mg oral tablet 20 mg, 1, tablet, By Mouth, Daily in AM, # 14 tablet, Refills 0, Tot. Refills 0, Maintenance, 11/22/17 11:22:48 EDT, Route to Pharmacy Electronically, [id number], [facility] [address] Start Date: 11/22/17 Stop Date: 12/06/17 Status: Ordered melatonin 3 mg oral tablet, extended release 1 tablet = 3 mg, By Mouth, Daily at bedtime, PRN as needed for insomnia, # 60 tablet, 0 Refills, Maintenance, 11/22/17 11:23:13 EDT, ER Tablet, 1 tablet By Mouth Daily at bedtime,PRN:as needed for insomnia Start Date: 11/22/17 Status: Ordered nicotine 2 mg oral transmucosal gum = 2 mg, Chew, Every hour, PRN Other, for 2 week(s), Nicotine Cravings, # 40 each, 1 Refills, Acute 03/18/19 14:19:00 EST, 02/18/19 14:19:00 EST, Gum, [facility], 165, cm, 02/18/19 5:07:00 EST, Height, 70.8, kg, 02/11/19 21:53:00 EST, Dry... Start Date: 02/18/19 Stop Date: 03/18/19 Status: Ordered oxyCODONE 5 mg oral tablet 5 mg, 1, tablet, By Mouth, Every 6 hours, PRN, for 5 days, # 10 tablet, Refills 0, Tot. Refills 0, Acute 02/23/19 14:16:00 EST, Pain , Moderate, 02/18/19 14:16:00 EST, Route to Pharmacy Electronically, [facility], Partial fill upon patie... Start Date: 02/18/19 Stop Date: 02/23/19 Status: Ordered risperiDONE 0.5 mg oral tablet 0.5 mg, 1, tablet, By Mouth, 3 times a day, Daily at 8 am and 2pm, # 42 tablet, Refills 0, Tot. Refills 0, Maintenance, 11/22/17 11:22:50 EDT, Route to Pharmacy Electronically, [id number], [facility] [address] Start Date: 11/22/17 Stop Date: 12/06/17 Status: Ordered Problem List Condition Effective Dates Status Health Status Inform ant Adjustment disorder(Confirmed) Active Migraine(Confirmed) Active Results Orders for Microbiology Reports Name Date Blood Culture 02/10/19 Blood Culture #2 02/10/19 Microbiology Reports TEST:Blood Culture, Second Order STATUS:Auth (Verified) BODY SITE: SOURCE:Blood COLLECTED DATE/TIME:02/10/19 9:47 AM Blood Culture, Second Order SPECIMEN DESCRIPTION : BLOOD SPECIAL REQUESTS : NONE CULTURE : NO GROWTH 5 DAYS. REPORT STATUS : FINAL 02/15/2019 TEST:Blood Culture STATUS:Auth (Verified) BODY SITE: SOURCE:Blood COLLECTED DATE/TIME:02/10/19 9:37 AM Blood Culture SPECIMEN DESCRIPTION : BLOOD SPECIAL REQUESTS : NONE CULTURE : NO GROWTH 5 DAYS. REPORT STATUS : FINAL 02/15/2019 Radiology Reports * Exam Date Time Procedure Performing Provider Status 02/10/19 10:30 AM Tibia/Fibula 2 Views Right Shanel Navarrete; Auth (Verified) Notes: (Tibia/Fibula 2 Views Right) Reason For Exam: with Pain;Trauma RESULT: Tibia/Fibula 2 Views Right Tibia/Fibula 2 Views Right Refer to EMR; Reason: Trauma; with Pain; Clinical Question(s): Fracture; Hx of Present Illness: pt states that he was bit by a pitbull 8 weeks ago, believes that the dog has his shots but unsure. nowcomplaining of pain, fever, nausea vomiting; Other Objective Findings: pt alert, agitated, limited cooperation on exam. asking repeatedly to go out to smoke prior to vitals and assessment. old bite ma COMPARISON: None. FINDINGS: No fractures or bone lesions. Visualized joints are normal. Normal soft tissues. IMPRESSION: Normal. WSN: [id number] Dictated By: Carolina Oviedo MD Dictated Date/Time: 02/10/19 10:32 a Reviewed By: Carolina Oviedo MD Signed By: Carolina Oviedo MD Signed Date/Time: 02/10/19 10:32 am Transcribed By: JAYDON Transcribed Date/Time: 02/10/19 10:32 am * Exam Date Time Procedure Performing Provider Status 02/10/19 10:30 AM Foot Min 3 Views Right Fabricio Navarrete i J; Auth (Verified) Notes: (Foot Min 3 Views Right) Reason For Exam: with Pain;Trauma RESULT: Foot Min 3 Views Right Foot Min 3 Views Right, 3 views Refer to EMR; Reason: Trauma; with Pain; Clinical Question(s): Fracture; Hx of Present Illness: pt states that he was bit by a pitbull 8 weeks ago, believes that the dog has his shots but unsure. nowcomplaining of pain, fever, nausea vomiting; Other Objective Findings: pt alert, agitated, limited cooperation on exam. asking repeatedly to go out to smoke prior to vitals and assessment. old bite ma COMPARISON: None. FINDINGS: No fractures or bone lesions. No arthritic changes. Normal soft tissues. IMPRESSION: Normal. WSN: [id number] Dictated By: Carolina Oviedo MD Dictated Date/Time: 02/10/19 10:32 a Reviewed By: Carolina Oviedo MD Signed By: Carolina Oviedo MD Signed Date/Time: 02/10/19 10:32 am Transcribed By: JAYDON Transcribed Date/Time: 02/10/19 10:31 am Vital Signs Most recent to oldest [Reference Range]: 1 2 3 Height 165 cm (02/18/19 5:07 AM) 165 cm (02/17/19 7:56 PM) 165 cm (02/17/19 2:53 PM) Weight 70.8 kg (02/11/19 9:25 PM) 70.8 kg (02/11/19 11:15 AM) Oxygen Saturation [94-100 %] 100 % (02/18/19 5:07 AM) 100 % (02/17/19 7:56 PM) 99 % (02/17/19 2:53 PM) Pulse Rate [55-90 bpm] 76 bpm (02/18/19 5:07 AM) 76 bpm (02/17/19 7:56 PM) 82 bpm (02/17/19 2:53 PM) Body Mass Index [18.5-24.99] 26.01 *H* (02/11/19 9:25 PM) 26.01 *H* (02/11/19 11:15 AM) Blood Pressure [90-138/55-84 mm Hg] 126/75mm Hg (02/18/19 5:07 AM) 108/56mm Hg (02/17/19 7:56 PM) 124/81mm Hg (02/17/19 2:53 PM) Respiratory Rate [16-30 br/min] 18 br/min (02/18/19 12:15 PM) 18 br/min (02/18/19 12:15 PM) 18 br/min (02/18/19 11:15 AM) Temperature [96.8-100.4 DegF] 98.2 DegF (02/18/19 5:07 AM) 98.3 DegF (02/17/19 7:56 PM) 98.5 DegF (02/17/19 2:53 PM) Mode of Delivery (Oxygen) Room air (02/18/19 5:07 AM) Room air (02/17/19 7:56 PM) Room air (02/17/19 2:53 PM) Blood pressure sites Arm, left (02/18/19 5:07 AM) Arm, left (02/17/19 7:56 PM) Arm, left (02/17/19 2:53 PM) Temperature Route Oral (02/18/19 5:07 AM) Oral (02/17/19 7:56 PM) Oral (02/17/19 2:53 PM) Dry Weight 70.8 kg (02/11/19 11:15 AM) Weight Obtained Via Bed scale (02/11/19 9:25 PM) Bed scale (02/11/19 11:15 AM) Dry Weight Obtained Via Bed scale (02/11/19 11:15 AM) Sensory deficits None (02/11/19 11:15 AM) Mobility assistance Independent (02/11/19 11:15 AM)
--- OUTSIDE RECORDS SUMMARY | 2022-11-27 17:26 | XMS_ITS | Continuity of Care Document ---
Author Name Unknown Organization [facility] Address [address] [place] [address]- Care Team Providers Care Aquatic Centre Manager Name Role Phone Aylin LIEBERMAN, New Choi Primary Care Physician ( [phone] Encounter [facility]CT R [id number] Date(s): 03/20/20 - 04/24/[address] [address]- Attending Physician: Margie Escamilla DO Admitting Physician: Margie Escamilla DO Referring Physician: Jaimie Pike MD Allergies, Adverse Reactions, Alerts No Known Medication Allergies Substance Reaction Severity Status NKA Active Immunizations Given and Recorded Vaccine Date Status Refusal Reason influenza virus vaccine, inactivated 03/13/19 Give n tetanus/diphtheria/pertussis, acel(Tdap) 02/10/19 Given Medications amoxicillin-clavulanate 875 mg-125 mg oral tablet 1 tablet, By Mouth, Every 12 hours, # 14 tablet, 0 Refills, Maintenance, 03/13/19 11:37:00 EST, Tablet, [facility] #22891, 165, cm, 03/13/19 10:56:00 EST, Height, 70.8, kg, 02/11/19 21:53:00 EST, Dry Weight Start Date: 03/13/19 Stop Date: 03/20/19 Status: Ordered citalopram 20 mg oral tablet 20 mg, 1, tablet, By Mouth, Daily in AM, # 14 tablet, Refills 0, Tot. Refills 0, Maintenance, 11/22/17 11:22:48 EDT, Route to Pharmacy Electronically, [id number], [facility] [address] Start Date: 11/22/17 Stop Date: 12/06/17 Status: Ordered ibuprofen 800 mg oral tablet 800 mg, 1, tablet, By Mouth, Every 8 hours, PRN, # 30 tablet, Refills 0, Tot. Refills 0, Maintenance, Pain , Severe, 03/13/19 11:40:00 EST, Route to Pharmacy Electronically, [facility] #43869, 165, cm, 03/13/19 10:56:00 EST, Height, 70.8, [...] 11/22/17 11:22:50 EDT, Route to Pharmacy Electronically, [id number], [facility] [address] Start Date: 11/22/17 Stop Date: 12/06/17 Status: Ordered Problem List Condition Effective Dates Status Health Status Inform ant Adjustment disorder(Confirmed) Active Migraine(Confirmed) Active Care Management, Terry hammer Care Coordination [facility] [phone](Confirmed) Active Social History Social History Type Response Smoking Status 10 or more cigarette s (1/2 pack or more)/day in last 30 days; Type: Cigarettes; Started at age: 16; entered on: 03/08/19 Sex
--- OUTSIDE RECORDS SUMMARY | 2022-11-27 17:26 | XMS_ITS | Continuity of Care Document ---
Author Name Unknown Organization [facility] Address [address] [place] [address]- Care Team Providers Care Sheet Metal Duct Installer Helper Name Role Phone New Viera MD Primary Care Physician [facility] [id number] Date(s): 03/20/20 - 04/24/[address] [address]- Attending Physician: Not on Staff, Attending MD Referring Physician: New Viera MD Allergies, Adverse Reactions, Alerts No Known Medication Allergies Substance Reaction Severity Status NKA Active Immunizations Given and Recorded Vaccine Date Status Refusal Reason influenza virus vaccine, inactivated 03/13/19 Give n tetanus/diphtheria/pertussis, acel(Tdap) 02/10/19 Given Medications amoxicillin-clavulanate 875 mg-125 mg oral tablet 1 tablet, By Mouth, Every 12 hours, # 14 tablet, 0 Refills, Maintenance, 03/13/19 11:37:00 EST, Tablet, [facility]23698, 165, cm, 03/13/19 10:56:00 EST, Height, 70.8, kg, 02/11/19 21:53:00 EST, Dry Weight Start Date: 03/13/19 Stop Date: 03/20/19 Status: Ordered citalopram 20 mg oral tablet 20 mg, 1, tablet, By Mouth, Daily in AM, # 14 tablet, Refills 0, Tot. Refills 0, Maintenance, 11/22/17 11:22:48 EDT, Route to Pharmacy Electronically, [id number], [facility] [address] Start Date: 11/22/17 Stop Date: 12/06/17 Status: Ordered ibuprofen 800 mg oral tablet 800 mg, 1, tablet, By Mouth, Every 8 hours, PRN, # 30 tablet, Refills 0, Tot. Refills 0, Maintenance, Pain , Severe, 03/13/19 11:40:00 EST, Route to Pharmacy Electronically, [facility]93526, 165, cm, 03/13/19 10:56:00 EST, Height, 70.8, [...] 11/22/17 11:22:50 EDT, Route to Pharmacy Electronically, [id number], [facility] [address] Start Date: 11/22/17 Stop Date: 12/06/17 Status: Ordered Problem List Condition Effective Dates Status Health Status Inform ant Adjustment disorder(Confirmed) Active Migraine(Confirmed) Active Care Management, Terry hammer Care Coordination N/CP [id number](Confirmed) Active Social History Social History Type Response Smoking Status 10 or more cigarette s (1/2 pack or more)/day in last 30 days; Type: Cigarettes; Started at age: 16; entered on: 03/08/19 Sex
--- OUTSIDE RECORDS SUMMARY | 2022-11-27 17:26 | XMS_ITS | Continuity of Care Document ---
Author Name Unknown Organization [facility] ter Address [address] [place] [address]- Care Team Providers Care Track Layer Head Name Role Phone Aylin LIEBERMAN, New Choi Primary Care Physician Encounter [facility] Date(s): 04/21/20 - 06/11/[address] [address] Attending Physician: Judy Veloz MD Admitting Physician: Judy Veloz MD Referring Physician: Jaimie Pike MD Allergies, Adverse Reactions, Alerts No Known Medication Allergies Substance Reaction Severity Status NKA Active Immunizations Given and Recorded Vaccine Date Status Refusal Reason influenza virus vaccine, inactivated 03/13/19 Give n tetanus/diphtheria/pertussis, acel(Tdap) 02/10/19 Given Medications amoxicillin-clavulanate 875 mg-125 mg oral tablet 1 tablet, By Mouth, Every 12 hours, # 14 tablet, 0 Refills, Maintenance, 03/13/19 11:37:00 EST, Tablet, [facility] #77618, 165, cm, 03/13/19 10:56:00 EST, Height, 70.8, kg, 02/11/19 21:53:00 EST, Dry Weight Start Date: 03/13/19 Stop Date: 03/20/19 Status: Ordered citalopram 20 mg oral tablet 20 mg, 1, tablet, By Mouth, Daily in AM, # 14 tablet, Refills 0, Tot. Refills 0, Maintenance, 11/22/17 11:22:48 EDT, Route to Pharmacy Electronically, [id number], [facility] [address] Start Date: 11/22/17 Stop Date: 12/06/17 Status: Ordered ibuprofen 800 mg oral tablet 800 mg, 1, tablet, By Mouth, Every 8 hours, PRN, # 30 tablet, Refills 0, Tot. Refills 0, Maintenance, Pain , Severe, 03/13/19 11:40:00 EST, Route to Pharmacy Electronically, [facility] #94106, 165, cm, 03/13/19 10:56:00 EST, Height, 70.8, [...] 11/22/17 11:22:50 EDT, Route to Pharmacy Electronically, [id number], [facility] [address] Start Date: 11/22/17 Stop Date: 12/06/17 Status: Ordered Problem List Condition Effective Dates Status Health Status Inform ant Adjustment disorder(Confirmed) Active Migraine(Confirmed) Active Social History Social History Type Response Smoking Status 10 or more cigarette s (1/2 pack or more)/day in last 30 days; Type: Cigarettes; Started at age: 16; entered on: 03/08/19 Sex
--- OUTSIDE RECORDS SUMMARY | 2022-11-27 17:26 | XMS_ITS | Continuity of Care Document ---
Author Name Unknown Organization [facility] ter Address [address] [place] [address]- Care Team Providers Care Director Of Optimization Name Role Phone Aylin LIEBERMAN, New Choi Primary Care Physician Encounter [facility] Date(s): 03/26/20 - 05/22/[address] [address] Attending Physician: Judy Veloz MD Admitting Physician: [...] 0 Refills, Maintenance, 03/13/19 11:37:00 EST, Tablet, [facility] #89327, 165, cm, 03/13/19 10:56:00 EST, Height, 70.8, kg, 02/11/19 21:53:00 EST, Dry Weight Start Date: 03/13/19 Stop Date: 03/20/19 Status: Ordered citalopram 20 mg oral tablet 20 mg, 1, tablet, By Mouth, Daily in AM, # 14 tablet, Refills 0, Tot. Refills 0, Maintenance, 11/22/17 11:22:48 EDT, Route to Pharmacy Electronically, [id number], [facility] [address] Start Date: 11/22/17 Stop Date: 12/06/17 Status: Ordered ibuprofen 800 mg oral tablet 800 mg, 1, tablet, By Mouth, Every 8 hours, PRN, # 30 tablet, Refills 0, Tot. Refills 0, Maintenance, Pain , Severe, 03/13/19 11:40:00 EST, Route to Pharmacy Electronically, [facility] #83594, 165, cm, 03/13/19 10:56:00 EST, Height, 70.8, [...] 11/22/17 11:22:50 EDT, Route to Pharmacy Electronically, [id number], [facility] [address] Start Date: 11/22/17 Stop Date: 12/06/17 Status: Ordered Problem List Condition Effective Dates Status Health Status Inform ant Adjustment disorder(Confirmed) Active Migraine(Confirmed) Active Social History Social History Type Response Smoking Status 10 or more cigarette s (1/2 pack or more)/day in last 30 days; Type: Cigarettes; Started at age: 16; entered on: 03/08/19 Sex
--- OUTSIDE RECORDS SUMMARY | 2022-11-27 17:26 | XMS_ITS | Continuity of Care Document ---
Author Name Unknown Organization [facility] ter Address [address] [place] [address]- Care Team Providers Care Legal Archivist Name Role Phone New Viera MD Primary Care Physician Encounter [facility] Date(s): 11/27/19 - 11/28/[address] [address]- [facility] Discharge Disposition: A-D/C Walkout Attending Physician: Not [...] 0 Refills, Maintenance, 03/13/19 11:37:00 EST, Tablet, [facility] #43746, 165, cm, 03/13/19 10:56:00 EST, Height, 70.8, kg, 02/11/19 21:53:00 EST, Dry Weight Start Date: 03/13/19 Stop Date: 03/20/19 Status: Ordered citalopram 20 mg oral tablet 20 mg, 1, tablet, By Mouth, Daily in AM, # 14 tablet, Refills 0, Tot. Refills 0, Maintenance, 11/22/17 11:22:48 EDT, Route to Pharmacy Electronically, [id number], [facility] [address] Start Date: 11/22/17 Stop Date: 12/06/17 Status: Ordered ibuprofen 800 mg oral tablet 800 mg, 1, tablet, By Mouth, Every 8 hours, PRN, # 30 tablet, Refills 0, Tot. Refills 0, Maintenance, Pain , Severe, 03/13/19 11:40:00 EST, Route to Pharmacy Electronically, [facility] #77716, 165, cm, 03/13/19 10:56:00 EST, Height, 70.8, [...] 11/22/17 11:22:50 EDT, Route to Pharmacy Electronically, [id number], [facility] [address] Start Date: 11/22/17 Stop Date: 12/06/17 Status: Ordered Problem List Condition Effective Dates Status Health Status Inform ant Adjustment disorder(Confirmed) Active Migraine(Confirmed) Active Vital Signs Most recent to oldest [Reference Range]: 1 2 Oxygen Saturation [94-100 %] 97 % (11/27/19 11:11 PM) 98 % (11/27/19 10:52 PM) Pulse Rate [55-90 bpm] 111 bpm *H* (11/27/19 11:11 PM) 124 bpm *H* (11/27/19 10:52 PM) Blood Pressure [90-138/55-84 mm Hg] 121/ 72mm Hg (11/27/19 11:11 PM) Respiratory Rate [16-30 br/min] 16 br/mi n (11/27/19 11:11 PM) Temperature [96.8-100.4 DegF] 97.9 DegF (11/27/19 11:11 PM) Mode of Delivery (Oxygen) Room air (11/27/19 11:11 PM) Blood pressure sites Arm, left (11/27/19 11:11 PM) Temperature Route Oral (11/27/19 11:11 PM) Social History Social History Type Response Smoking Status 10 or more cigarette s (1/2 pack or more)/day in last 30 days; Type: Cigarettes; Started at age: 16; entered on: 03/08/19 Sex
--- OUTSIDE RECORDS SUMMARY | 2022-11-27 17:26 | XMS_ITS | Continuity of Care Document ---
Author Name Unknown Organization [facility] Address [address] [place] [address]- Care Team Providers Care Sales Ledger Administrator Name Role Phone New Viera MD Primary Care Physician [facility] [id number] Date(s): 03/25/20 - 05/01/[address] [address]- Attending Physician: Not on Staff, Attending MD [...] 0 Refills, Maintenance, 03/13/19 11:37:00 EST, Tablet, [facility] #07270, 165, cm, 03/13/19 10:56:00 EST, Height, 70.8, kg, 02/11/19 21:53:00 EST, Dry Weight Start Date: 03/13/19 Stop Date: 03/20/19 Status: Ordered citalopram 20 mg oral tablet 20 mg, 1, tablet, By Mouth, Daily in AM, # 14 tablet, Refills 0, Tot. Refills 0, Maintenance, 11/22/17 11:22:48 EDT, Route to Pharmacy Electronically, [id number], [facility] [address] Start Date: 11/22/17 Stop Date: 12/06/17 Status: Ordered ibuprofen 800 mg oral tablet 800 mg, 1, tablet, By Mouth, Every 8 hours, PRN, # 30 tablet, Refills 0, Tot. Refills 0, Maintenance, Pain , Severe, 03/13/19 11:40:00 EST, Route to Pharmacy Electronically, [facility] #94945, 165, cm, 03/13/19 10:56:00 EST, Height, 70.8, [...] 11/22/17 11:22:50 EDT, Route to Pharmacy Electronically, [id number], [facility] [address] Start Date: 11/22/17 Stop Date: 12/06/17 Status: Ordered Problem List Condition Effective Dates Status Health Status Inform ant Adjustment disorder(Confirmed) Active Migraine(Confirmed) Active Care Management, Terry hammer Care Coordination N/CP [id number](Confirmed) Active Social History Social History Type Response Smoking Status 10 or more cigarette s (1/2 pack or more)/day in last 30 days; Type: Cigarettes; Started at age: 16; entered on: 03/08/19 Sex
--- OUTSIDE RECORDS SUMMARY | 2022-11-27 17:26 | XMS_ITS | Continuity of Care Document ---
Author Name Unknown Organization [facility] Address [address] [place] [address]- Care Team Providers Care Driver Material Handler Name Role Phone Aylin LIEBERMAN, New Choi Primary Care Physician ( [phone] Encounter [facility] [place] [facility] Date(s): 04/17/20 - 05/17/[address] [address]- Allergies, Adverse Reactions, Alerts No Known Medication Allergies Substance Reaction Severity Status NKA Active Immunizations Given and Recorded Vaccine Date Status Refusal Reason influenza virus vaccine, inactivated 03/13/19 Give n tetanus/diphtheria/pertussis, acel(Tdap) 02/10/19 Given Medications amoxicillin-clavulanate 875 mg-125 mg oral tablet 1 tablet, By Mouth, Every 12 hours, # 14 tablet, 0 Refills, Maintenance, 03/13/19 11:37:00 EST, Tablet, [facility] #90305, 165, cm, 03/13/19 10:56:00 EST, Height, 70.8, kg, 02/11/19 21:53:00 EST, Dry Weight Start Date: 03/13/19 Stop Date: 03/20/19 Status: Ordered citalopram 20 mg oral tablet 20 mg, 1, tablet, By Mouth, Daily in AM, # 14 tablet, Refills 0, Tot. Refills 0, Maintenance, 11/22/17 11:22:48 EDT, Route to Pharmacy Electronically, [id number], [facility] [address] Start Date: 11/22/17 Stop Date: 12/06/17 Status: Ordered ibuprofen 800 mg oral tablet 800 mg, 1, tablet, By Mouth, Every 8 hours, PRN, # 30 tablet, Refills 0, Tot. Refills 0, Maintenance, Pain , Severe, 03/13/19 11:40:00 EST, Route to Pharmacy Electronically, [facility] #59304, 165, cm, 03/13/19 10:56:00 EST, Height, 70.8, [...] 11/22/17 11:22:50 EDT, Route to Pharmacy Electronically, [id number], [facility] [address] Start Date: 11/22/17 Stop Date: 12/06/17 Status: Ordered Problem List Condition Effective Dates Status Health Status Inform ant Adjustment disorder(Confirmed) Active Migraine(Confirmed) Active Social History Social History Type Response Smoking Status 10 or more cigarette s (1/2 pack or more)/day in last 30 days; Type: Cigarettes; Started at age: 16; entered on: 03/08/19 Sex
--- OUTSIDE RECORDS SUMMARY | 2022-11-27 17:26 | XMS_ITS | Continuity of Care Document ---
Author Name Unknown Organization [facility] ter Address [address] [place] [address]- Care Team Providers Care Corrugated Sheet Material Sheeter Name Role Phone Judy Veloz MD Primary Care Physician [phone] Encounter [facility] [place] Date(s): 02/22/20 - 02/26/[address] [address]- Encounter Diagnosis Liver laceration(Final) - 02/22/20 Splenic laceration(Final) - 02/22/20 Discharge Disposition: A-D/C AMA Attending Physician: Cb Sanchez MD Admitting Physician: Cb Sanchez MD Referring Physician: Not on Staff, Referring MD Allergies, Adverse Reactions, Alerts No Known Medication Allergies Medications oxyCODONE 5 mg oral tablet 5 mg, Tablet, By Mouth, Every 4 hours, PRN for Pain , Severe, Routine, 02/23/20 13:38:00 EST Start Date: 02/23/20 Stop Date: 02/26/20 Status: Discontinued Results Radiology Reports * Exam Date Time Procedure Performing Provider Status 02/22/20 4:25 PM Chest Portable Mihir Bowens (Verified) Notes: (Chest Portable) Reason For Exam: Shortness of Breath RESULT: Chest Portable Chest Portable Reason: Shortness of Breath; Clinical Question(s): Pneumothorax; Order Comment: please obtain repeat CXR on arrival to [facility] COMPARISON: 02/22/2020 chest x-ray and chest CT. FINDINGS: LINES AND TUBES: External monitoring leads. LUNGS AND PLEURA: Clear lungs. Normal pulmonary vascularity. No pleural effusion. No pneumothorax. HEART, MEDIASTINUM AND ED: Heart is normal in size. Normal upper mediastinal and hilar contour. BONES AND SOFT TISSUES: No acute abnormality. IMPRESSION: No pneumothorax identified. WSN: [id number] Ordering Physician: Moira Shah Dictated By: Susan Deshpande MD Dictated Date/Time: 02/22/20 4:38 pm Reviewed By: Susan Deshpande MD Signed By: Susan Deshpande MD Signed Date/Time: 02/22/20 4:38 pm Transcribed By: JAYDON Transcribed Date/Time: 02/22/20 4:36 pm * Exam Date Time Procedure Performing Provider Status 02/22/20 11:53 AM Chest Portable Boyd Hernández; Costa (Verified) Notes: (Chest Portable) Reason For Exam: Pain;Other: RESULT: Chest Portable Chest Portable Reason: Other:; Pain; Clinical Question(s): Other:; Fracture, pneumothorax, pulmonary contusion COMPARISON: None. FINDINGS: No acute cardiopulmonary process. IMPRESSION: No acute abnormality. Normal exam. WSN: [id number] Ordering Physician: Erick Lawson Dictated By: Erick Pompa MD Dictated Date/Time: 02/22/20 12:12 p Reviewed By: Erick Pompa MD Signed By: Erick Pompa MD Signed Date/Time: 02/22/20 12:12 pm Transcribed By: JAYDON Transcribed Date/Time: 02/22/20 12:11 pm Vital Signs Most recent to oldest [Reference Range]: 1 2 3 Height 65.1 cm (02/22/20 2:58 PM) Weight 69.3 kg (02/22/20 2:58 PM) Oxygen Saturation [94-100 %] 99 % (02/26/20 2:07 AM) 99 % (02/25/20 11:12 PM) 93 % *L* (02/25/20 9:00 PM) Pulse Rate [55-90 bpm] 70 bpm (02/26/20 2:07 AM) 61 bpm (02/25/20 11:12 PM) 71 bpm (02/25/20 7:00 PM) Body Mass Index [18.5-24.99] 163.52 *>HHI* (02/22/20 2:58 PM) Blood Pressure [90-138/55-84 mm Hg] 143/73mm Hg *H* (02/26/20 2:07 AM) 115/73mm Hg (02/25/20 11:12 PM) 140/78mm Hg *H* (02/25/20 9:00 PM) Respiratory Rate [16-30 br/min] 17 br/min (02/26/20 5:37 AM) 21 br/min (02/26/20 4:37 AM) 25 br/min (02/26/20 2:07 AM) Temperature [96.8-100.4 DegF] 99.0 DegF (02/26/20 2:07 AM) 98.4 DegF (02/25/20 11:12 PM) 99.3 DegF (02/25/20 7:00 PM) Liters per Minute 2 L/min (02/22/20 7:00 PM) 2 L/min (02/22/20 6:00 PM) 2 L/min (02/22/20 5:00 PM) Mode of Delivery (Oxygen) Room air (02/26/20 2:07 AM) Room air (02/25/20 11:12 PM) Room air (02/25/20 7:00 PM) Blood pressure sites Arm, right (02/26/20 2:07 AM) Arm, left (02/25/20 11:12 PM) Arm, left (02/25/20 7:00 PM) Temperature Route Oral (02/26/20 2:07 AM) Oral (02/25/20 11:12 PM) Oral (02/25/20 7:00 PM) Dry Weight 69.3 kg (02/22/20 2:58 PM) 68 kg (02/22/20 2:02 PM) Weight Obtained Via Bed scale (02/22/20 2:58 PM) Dry Weight Obtained Via Bed scale (02/22/20 2:58 PM)
--- OUTSIDE RECORDS SUMMARY | 2022-11-27 17:26 | XMS_ITS | Continuity of Care Document ---
Author Name Unknown Organization [facility] Address [address] [place] [address]- Care Team Providers Care Vibrating Screed Operator Name Role Phone Aylin LIEBERMAN, New Choi Primary Care Physician ( [phone] Encounter [facility] Date(s): 03/18/20 - 04/17/[address] [address]- Allergies, Adverse Reactions, Alerts No Known Medication Allergies Substance Reaction Severity Status NKA Active Immunizations Given and Recorded Vaccine Date Status Refusal Reason influenza virus vaccine, inactivated 03/13/19 Give n tetanus/diphtheria/pertussis, acel(Tdap) 02/10/19 Given Medications amoxicillin-clavulanate 875 mg-125 mg oral tablet 1 tablet, By Mouth, Every 12 hours, # 14 tablet, 0 Refills, Maintenance, 03/13/19 11:37:00 EST, Tablet, [facility] #[id number], 165, cm, 03/13/19 10:56:00 EST, Height, 70.8, kg, 02/11/19 21:53:00 EST, Dry Weight Start Date: 03/13/19 Stop Date: 03/20/19 Status: Ordered citalopram 20 mg oral tablet 20 mg, 1, tablet, By Mouth, Daily in AM, # 14 tablet, Refills 0, Tot. Refills 0, Maintenance, 11/22/17 11:22:48 EDT, Route to Pharmacy Electronically, [id number], [facility] [address] Start Date: 11/22/17 Stop Date: 12/06/17 Status: Ordered ibuprofen 800 mg oral tablet 800 mg, 1, tablet, By Mouth, Every 8 hours, PRN, # 30 tablet, Refills 0, Tot. Refills 0, Maintenance, Pain , Severe, 03/13/19 11:40:00 EST, Route to Pharmacy Electronically, [facility] #[id number], 165, cm, 03/13/19 10:56:00 EST, Height, 70.8, [...] 11/22/17 11:22:50 EDT, Route to Pharmacy Electronically, [id number], [facility] [address] Start Date: 11/22/17 Stop Date: 12/06/17 Status: Ordered Problem List Condition Effective Dates Status Health Status Inform ant Adjustment disorder(Confirmed) Active Migraine(Confirmed) Active Care Management, Terry Escalante [facility] Care Coordination N/CP [phone](Confirmed) Active Social History Social History Type Response Smoking Status 10 or more cigarette s (1/2 pack or more)/day in last 30 days; Type: Cigarettes; Started at age: 16; entered on: 03/08/19 Sex
--- OUTSIDE RECORDS SUMMARY | 2022-11-27 17:26 | XMS_ITS | Continuity of Care Document ---
Author Name Unknown Organization [facility] Address [address] [place] [address]- Care Team Providers Care Gluing Machine Offbearer Name Role Phone Aylin LIEBERMAN, New Choi Primary Care Physician Encounter [facility] [facility] Date(s): 01/10/20 - 02/09/[address] [address]- Attending Physician: AdmZuri johns Admitting Physician: AdmtrZuri Referring Physician: Admtr, Ar8 Allergies, Adverse Reactions, Alerts Substance Reaction Severity Status NKA Active Immunizations Given and Recorded Vaccine Date Status Refusal Reason influenza virus vaccine, inactivated 03/13/19 Give n tetanus/diphtheria/pertussis, acel(Tdap) 02/10/19 Given Medications amoxicillin-clavulanate 875 mg-125 mg oral tablet 1 tablet, By Mouth, Every 12 hours, # 14 tablet, 0 Refills, Maintenance, 03/13/19 11:37:00 EST, Tablet, [facility] #65518, 165, cm, 03/13/19 10:56:00 EST, Height, 70.8, kg, 02/11/19 21:53:00 EST, Dry Weight Start Date: 03/13/19 Stop Date: 03/20/19 Status: Ordered citalopram 20 mg oral tablet 20 mg, 1, tablet, By Mouth, Daily in AM, # 14 tablet, Refills 0, Tot. Refills 0, Maintenance, 11/22/17 11:22:48 EDT, Route to Pharmacy Electronically, [id number], [facility] [address] Start Date: 11/22/17 Stop Date: 12/06/17 Status: Ordered ibuprofen 800 mg oral tablet 800 mg, 1, tablet, By Mouth, Every 8 hours, PRN, # 30 tablet, Refills 0, Tot. Refills 0, Maintenance, Pain , Severe, 03/13/19 11:40:00 EST, Route to Pharmacy Electronically, [facility] #10328, 165, cm, 03/13/19 10:56:00 EST, Height, 70.8, [...] 11/22/17 11:22:50 EDT, Route to Pharmacy Electronically, [id number], [facility] [address] Start Date: 11/22/17 Stop Date: 12/06/17 Status: Ordered Problem List Condition Effective Dates Status Health Status Inform ant Adjustment disorder(Confirmed) Active Migraine(Confirmed) Active Social History Social History Type Response Smoking Status 10 or more cigarette s (1/2 pack or more)/day in last 30 days; Type: Cigarettes; Started at age: 16; entered on: 03/08/19 Sex
--- OUTSIDE RECORDS SUMMARY | 2022-11-27 17:26 | XMS_ITS | Continuity of Care Document ---
Author Name Unknown Organization [facility] Address [address] [place] [address]- Care Team Providers Care Medical Laboratory Scientist Name Role Phone New Viera MD Primary Care Physician [place] [facility] [place] Date(s): 03/21/19 - 04/27/[address] [address]- [facility] Attending Physician: Not on Staff, Attending MD Allergies, Adverse Reactions, Alerts Substance Reaction Severity Status NKA Active Immunizations Given and Recorded Vaccine Date Status Refusal Reason influenza virus vaccine, inactivated 03/13/19 Give n tetanus/diphtheria/pertussis, acel(Tdap) 02/10/19 Given Medications amoxicillin-clavulanate 875 mg-125 mg oral tablet 1 tablet, By Mouth, Every 12 hours, # 14 tablet, 0 Refills, Maintenance, 03/13/19 11:37:00 EST, Tablet, [facility] #41786, 165, cm, 03/13/19 10:56:00 EST, Height, 70.8, kg, 02/11/19 21:53:00 EST, Dry Weight Start Date: 03/13/19 Stop Date: 03/20/19 Status: Ordered citalopram 20 mg oral tablet 20 mg, 1, tablet, By Mouth, Daily in AM, # 14 tablet, Refills 0, Tot. Refills 0, Maintenance, 11/22/17 11:22:48 EDT, Route to Pharmacy Electronically, [id number], [facility] [address] Start Date: 11/22/17 Stop Date: 12/06/17 Status: Ordered ibuprofen 800 mg oral tablet 800 mg, 1, tablet, By Mouth, Every 8 hours, PRN, # 30 tablet, Refills 0, Tot. Refills 0, Maintenance, Pain , Severe, 03/13/19 11:40:00 EST, Route to Pharmacy Electronically, [facility] #43115, 165, cm, 03/13/19 10:56:00 EST, Height, 70.8, [...] 11/22/17 11:22:50 EDT, Route to Pharmacy Electronically, [id number], [facility] [address] Start Date: 11/22/17 Stop Date: 12/06/17 Status: Ordered Problem List Condition Effective Dates Status Health Status Inform ant Adjustment disorder(Confirmed) Active Migraine(Confirmed) Active Social History Social History Type Response Smoking Status 10 or more cigarette s (1/2 pack or more)/day in last 30 days; Type: Cigarettes; Started at age: 16; entered on: 03/08/19 Sex
--- OUTSIDE RECORDS SUMMARY | 2022-11-27 17:26 | XMS_ITS | Continuity of Care Document ---
Author Name Unknown Organization [facility] Address [address] [place] [address]- Care Team Providers Care Electrical Prospecting Operator Name Role Phone New Viera MD Primary Care Physician [id number] Date[facility] - 06/26/[address] [address]- Attending Physician: Margie Escamilla DO Admitting Physician: Margie Escamilla DO Allergies, Adverse Reactions, Alerts No Known Medication Allergies Substance Reaction Severity Status NKA Active Immunizations Given and Recorded Vaccine Date Status Refusal Reason influenza virus vaccine, inactivated 03/13/19 Give n tetanus/diphtheria/pertussis, acel(Tdap) 02/10/19 Given Medications amoxicillin-clavulanate 875 mg-125 mg oral tablet 1 tablet, By Mouth, Every 12 hours, # 14 tablet, 0 Refills, Maintenance, 03/13/19 11:37:00 EST, Tablet, [facility] #47101, 165, cm, 03/13/19 10:56:00 EST, Height, 70.8, kg, 02/11/19 21:53:00 EST, Dry Weight Start Date: 03/13/19 Stop Date: 03/20/19 Status: Ordered citalopram 20 mg oral tablet 20 mg, 1, tablet, By Mouth, Daily in AM, # 14 tablet, Refills 0, Tot. Refills 0, Maintenance, 11/22/17 11:22:48 EDT, Route to Pharmacy Electronically, [id number], [facility] [address] Start Date: 11/22/17 Stop Date: 12/06/17 Status: Ordered ibuprofen 800 mg oral tablet 800 mg, 1, tablet, By Mouth, Every 8 hours, PRN, # 30 tablet, Refills 0, Tot. Refills 0, Maintenance, Pain , Severe, 03/13/19 11:40:00 EST, Route to Pharmacy Electronically, [facility] #[id number], 165, cm, 03/13/19 10:56:00 EST, Height, 70.8, [...] 11/22/17 11:22:50 EDT, Route to Pharmacy Electronically, [id number], [facility] [address] Start Date: 11/22/17 Stop Date: 12/06/17 Status: Ordered Problem List Condition Effective Dates Status Health Status Inform ant Adjustment disorder(Confirmed) Active Migraine(Confirmed) Active Social History Social History Type Response Smoking Status 10 or more cigarette s (1/2 pack or more)/day in last 30 days; Type: Cigarettes; Started at age: 16; entered on: 03/08/19 Sex
--- OUTSIDE RECORDS SUMMARY | 2022-11-27 17:26 | XMS_ITS | Continuity of Care Document ---
Author Name Unknown Organization [facility] ter Address [address] [place] [address]- Care Team Providers Care Quality Control Analyst Name Role Phone Aylin LIEBERMAN, New Choi Primary Care Physician En[place] [facility] [place] Date(s): 03/19/19 - 04/25/[address] [address]- [facility] Attending Physician: Margie Escamilla DO Admitting Physician: Margie Escamilla DO Referring Physician: Contractor Jessica HOOPER Allergies, Adverse Reactions, Alerts Substance Reaction Severity Status NKA Active Immunizations Given and Recorded Vaccine Date Status Refusal Reason influenza virus vaccine, inactivated 03/13/19 Give n tetanus/diphtheria/pertussis, acel(Tdap) 02/10/19 Given Medications amoxicillin-clavulanate 875 mg-125 mg oral tablet 1 tablet, By Mouth, Every 12 hours, # 14 tablet, 0 Refills, Maintenance, 03/13/19 11:37:00 EST, Tablet, [facility] #[id number], 165, cm, 03/13/19 10:56:00 EST, Height, 70.8, kg, 02/11/19 21:53:00 EST, Dry Weight Start Date: 03/13/19 Stop Date: 03/20/19 Status: Ordered citalopram 20 mg oral tablet 20 mg, 1, tablet, By Mouth, Daily in AM, # 14 tablet, Refills 0, Tot. Refills 0, Maintenance, 11/22/17 11:22:48 EDT, Route to Pharmacy Electronically, [id number], [facility] [address] Start Date: 11/22/17 Stop Date: 12/06/17 Status: Ordered ibuprofen 800 mg oral tablet 800 mg, 1, tablet, By Mouth, Every 8 hours, PRN, # 30 tablet, Refills 0, Tot. Refills 0, Maintenance, Pain , Severe, 03/13/19 11:40:00 EST, Route to Pharmacy Electronically, [facility] #[id number], 165, cm, 03/13/19 10:56:00 EST, Height, 70.8, [...] 11/22/17 11:22:50 EDT, Route to Pharmacy Electronically, [id number], [facility] [address] Start Date: 11/22/17 Stop Date: 12/06/17 Status: Ordered Problem List Condition Effective Dates Status Health Status Inform ant Adjustment disorder(Confirmed) Active Migraine(Confirmed) Active Social History Social History Type Response Smoking Status 10 or more cigarette s (1/2 pack or more)/day in last 30 days; Type: Cigarettes; Started at age: 16; entered on: 03/08/19 Sex
--- NOTE | 2022-11-27 18:40 | PC.NURSE ---
Resting comfortably, breathing even and unlabored. 1:[address] for safety. Sister called to check on patient, stating she will be in to visit
--- NOTE | 2022-11-27 19:37 | PC.NURSE ---
1:1 sitter at bedside pt sleeping in stretcher. respirations even and unlabored.
--- NOTE | 2022-11-28 00:32 | PC.NURSE ---
report given to s3 RIDDHI Esquivel. pt to be transported with corporate security manager. sitter at bedside.
[2022-11-28 00:46] VITALS: BMI 26.4
[2022-11-28 01:12] VITALS: BP 141/78; PULSE 72; RESP 18; TEMP 36.4; O2SAT 96
[2022-11-28] MEDS: 0.9 % Sodium Chloride 1,000 ML 100 ML IVCONT ×3 (04:02→23:32)
[2022-11-28 06:20] LABS: Hematocrit 35.4 % (42.0-52.0); Hemoglobin 11.5 g/dl (14.0-18.0); Mean Corpuscular HGB Conc 32.5 g/dl (31.0-36.0); Mean Corpuscular Hemoglobin 33.5 pg (27.0-33.0); Mean Corpuscular Volume 103.2 fL (80.0-98.0); Mean Platelet Volume 9.8 fL (9.4-12.4); Platelet Count 302 X10*3/uL (160-400); Red Blood Count 3.43 X10*6/uL (4.60-5.80); Red Cell Distribution Width 11.7 % (11.0-16.0); White Blood Count 14.4 X10*3/uL (4.8-10.8)
[2022-11-28 06:47] LABS: Anion Gap 12 (12-20); Blood Urea Nitrogen 8 mg/dL (9-16); Calcium 8.3 mg/dL (8.4-10.2); Carbon Dioxide 21 mmol/L (22-29); Chloride 113 mmol/L (96-108); Estimated Glomerular Filt Rate > 60; Glucose Random 73 mg/dL (60-115); Potassium 3.7 mmol/L (3.3-5.1); Sodium 142 mmol/L (135-145)
--- NOTE | 2022-11-28 07:30 | PHA.MEDREC ---
Pharmacy Consult ? Medication Reconciliation Pharmacy has reviewed the medication reconciliation.
[2022-11-28 08:00] VITALS: BP 136/80; PULSE 66; RESP 18; TEMP 37.1; O2SAT 97
[2022-11-28] MEDS: 0.9 % Sodium Chloride Flush 3 ML SYRINGE IVFLUSH (09:33)
[2022-11-28] MEDS: cloNIDine HCL 0.1 MG TABLET PO (09:33)
[2022-11-28] MEDS: cefTRIAXone sodium 1 GM in 0.9 % Sodium Chloride 50 ML IV (10:49)
--- NOTE | 2022-11-28 12:25 | MHC.CM.PN ---
with interpertorr met pt who lives alone [pt is a sect 12 who wll go to [facility] when mediclly stabl
--- NOTE | 2022-11-28 12:34 | P.PNIM_ITS ---
Subjective Subjective Date of Service: 11/28/22 Review of Systems Follow-up Encephalopathy, UTI, rhabdomyolysis some general body pain noted Physical Exam 2 Vital Signs: Vital Signs: Last Vital Signs Temp 98.7 F 11/28/22 08:00 Pulse 66 11/28/22 08:00 Resp 18 11/28/22 08:00 BP 136/80 11/28/22 08:00 Pulse Ox 97 11/28/22 08:00 O2 Del Method Room Air 11/28/22 08:00 BMI result Body Mass Index 26.4 Appearing in no acute distress lung sounds are clear to auscultation heart regular rate rhythm, clear S1, S2 positive bowel sounds, abdomen is soft, nontender neuro patient is alert x3, no focal deficits Objective Data Active Medications Acetaminophen (Acetaminophen 325 Mg Tablet) 650 mg PO Q6H PRN PRN Reason: Pain, Mild (Pain Scale 1-3) Benzonatate (Benzonatate 100 Mg Capsule) 100 mg PO TID PRN PRN Reason: Cough Clonidine HCl (Clonidine Hcl 0.1 Mg Tablet) 0.1 mg PO DAILY [facility]; Protocol Last Admin: 11/28/22 09:33 Dose: 0.1 mg Documented By: ARIANNA Docusate Sodium (Docusate Sodium 100 Mg Capsule) 100 mg PO DAILY PRN PRN Reason: Constipation Enoxaparin Sodium (Enoxaparin Sodium 40 Mg/0.4 Ml Syringe) 40 mg SUBCUT Q24H [facility] Last Admin: 11/27/22 17:22 Dose: Not Given Documented By: CAN Non-Admin Reason: Patient Refused Ceftriaxone Sodium 1 gm/ (Sodium Chloride) 50 mls @ 100 mls/hr IV Q24H [facility] Last Infusion: 11/28/22 11:32 Dose: Infused Documented By: ARIANNA Sodium Chloride (Ns) 1,000 mls @ 100 mls/hr IVCONT .Q10H [facility] Last Admin: 11/28/22 04:02 Dose: 100 mls/hr Documented By: SUSHILA Melatonin (Melatonin 3 Mg Tablet) 6 mg PO BEDTIME PRN PRN Reason: Insomnia Ondansetron HCl (Ondansetron Hcl 4 Mg/2 Ml Vial) 4 mg IVPUSH Q8H PRN PRN Reason: Nausea and Vomiting Oxycodone HCl (Oxycodone Hcl Immed Release 5 Mg Tablet) 10 mg PO Q4H PRN PRN Reason: withdrawl Sodium Chloride (0.9 % Sodium Chloride Flush 3 Ml Syringe) 3 ml IVFLUSH QSHIFT [facility] Last Admin: 11/28/22 09:33 Dose: 3 ml Documented By: ARIANNA Labs 11/28/22 05:41 11/28/22 05:41 Labs: Laboratory Results - last 24 hr 11/27/22 11/28/22 12:43 05:41 MCV 102.8 H 103.2 H MCH 33.4 H 33.5 H MCHC 32.5 32.5 RDW 11.6 11.7 Plt Count 308 302 MPV 9.3 L 9.8 Immature Gran % (Auto) 0.5 H Neut % (Auto) 79.6 H Lymph % (Auto) 13.9 L [place] % (Auto) 5.7 Eos % (Auto) 0.1 Baso % (Auto) 0.2 Lymph # (Auto) 2.5 [place] # (Auto) 1.0 Eos # (Auto) 0.0 Baso # (Auto) 0.0 Abs Immat Gran (auto) 0.08 H Absolute Neuts (auto) 14.1 H Absolute Nucleated RBC 0.000 0.000 Nucleated RBC % (auto) 0.0 0.0 Anion Gap 12 Estim Creat Clear Calc 106.0 Estimated GFR > 60 Random Glucose 73 Calcium 8.3 L D Total Creatine Kinase 2891 H 2539 H Microbiology Microbiology Results: Microbiology 11/27/22 10:07 Blood Culture - Preliminary Blood - Venous No growth after 24 hours. 11/27/22 10:06 Blood Culture - Preliminary Blood - Venous No growth after 24 hours. 11/27/22 Unknown Urine Culture - Preliminary Urine clean catch - Urine rolle top Gram negative [place] Assessment and Plan (1) Rhabdomyolysis: Status: Acute Plan 42-year-old male with a PMH significant for?heart murmur and polysubstance use disorder who presents to the ED by EMS for evaluation of unusual behavior. Brought in on a Section 12 and initially set on psychiatric admission. Pt it became agitated and needed to be restrained and lab showed elevated CPK and acute UTI. Pt will be admitted to the hospital for treatment and further evaluation of rhabdomyolysis and UTI. Patient is on a Section 12 and will need medical clearance before admittance to the psychiatric unit. GNR UTI Patient given IVF, started on broad-spectrum antibiotics in ED IV ceftriaxone, started 11/27/2022 maintenance fluids Follow cultures Rhabdomyolysis, CPK trending down Etiology unclear: Physically struggling while restrained verses cocaine induced rhabdomyolysis Patient given 3.5L IVF in the ED maintenance fluids Recheck CPK tomorrow Acute toxic metabolic encephalopathy, Patient brought in on a Section 12 after being found wandering around the neighborhood and knocking on doors Unclear etiology: Secondary to UTI versus cocaine/heroin/fentanyl intoxication Patient initially restrained in the ED after becoming agitated and a threat to himself and staff Treat as above Monitor mentation substance abuse addiction team consult pending Full Code Attending:?Dr. Wyatt DVT Prophylaxis: Lovenox continue hospital stay for at least two nights for treatment of?and further evaluation of rhabdomyolysis and UTI. Pt will be treated with IVF, IV antibiotics, and need close monitoring of labs. Patient is on a Section 12 and will need medical clearance before admittance to the psychiatric unit. Time Spent With Patient Time: Total time managing care of this patient today ____ minutes. Quality Stroke Does the patient have a stroke diagnosis?: No VTE Prior VTE?: No VTE Risk Level:: Medical - moderate - high VTE Device Contraindication: Treatment Not Indicated VTE Drug Contraindication: N/A - Med Ordered
[2022-11-28] MEDS: methADONE HCl 20 MG/2 ML ORAL.CONC 30 MG PO (13:16)
--- NOTE | 2022-11-28 13:20 | HO.ADDICTCON ---
History of Present Illness Date of Service: 11/28/2022 Chief Complaint: Rhabdo, UTI Reason for Consult: ABHISHEK Sources of Information: patient interviewed and chart reviewed HPI Narrative: Patient is a 42 year old Slovak speaking male currently medically admitted with rhabdo. Presented to the ED from the community after he was reported to be wandering the streets and knocking people's doors. He became paranoid in the ED and attempted to leave, require 4 point restraints. Seen by this marine underwriter in room 354, laying in bed, covers pulled up to his neck. When asked if he was experiencing withdrawal sx, he responded yes. States he uses approx 1/2 pack of heroin/fentanyl daily and 1/2 an 8 ball daily. He is visibly restless, reporting chills, rhinorrhea, and joint pain. He reports he has been on methadone in the past. Reminder of interview to be completed at a later time due to patients visible discomfort Review of Systems Constitutional: Reports as per HPI Diagnostics Vital Signs (24Hr): Vital Signs - 24 hr 11/27/22 13:42 11/27/22 15:47 11/27/22 17:23 Temperature 98.1 F 98.7 F Pulse Rate 89 74 78 Respiratory Rate 15 16 18 Blood Pressure 115/67 117/74 119/80 Pulse Oximetry 96 98 98 Oxygen Delivery Method Room Air Room Air Room Air 11/28/22 01:12 11/28/22 08:00 Temperature 97.6 F 98.7 F Pulse Rate 72 66 Respiratory Rate 18 18 Blood Pressure 141/78 H 136/80 Pulse Oximetry 96 97 Oxygen Delivery Method Room Air Room Air BMI result Body Mass Index 26.4 Labs 11/28/22 05:41 11/28/22 05:41 Labs: Laboratory Results - last 48 hr 11/27/22 11/27/22 11/27/22 05:44 07:38 10:06 WBC 19.4 H RBC 3.53 L Hgb 11.9 L Hct 35.1 L MCV 99.4 H MCH 33.7 H MCHC 33.9 RDW 11.6 Plt Count 309 MPV 9.1 L Immature Gran % (Auto) 0.6 H Neut % (Auto) 86.8 H Lymph % (Auto) 8.0 L Perkins % (Auto) 4.5 Eos % (Auto) 0.0 Baso % (Auto) 0.1 Lymph # (Auto) 1.6 Perkins # (Auto) 0.9 Eos # (Auto) 0.0 Baso # (Auto) 0.0 Abs Immat Gran (auto) 0.12 H Absolute Neuts (auto) 16.9 H Absolute Nucleated RBC 0.000 Nucleated RBC % (auto) 0.0 APTT 28.0 Sodium 138 Potassium 3.7 Chloride 103 Carbon Dioxide 23 Anion Gap 16 BUN 10 Creatinine 0.88 Estim Creat Clear Calc 99.8 Estimated GFR > 60 Random Glucose 87 Lactic Acid 1.1 Calcium 9.4 Total Bilirubin 0.9 AST 30 ALT 14 Alkaline Phosphatase 73 Total Creatine Kinase 1076 H Total Protein 7.2 Albumin 4.2 Urine Color Yellow Urine Appearance Cloudy Urine pH 6.0 Ur Specific [place] 1.015 Urine Protein 100 (2+) H Urine Glucose (UA) Negative Urine Ketones Negative Urine Blood Trace H Urine Nitrite Positive H Ur Leukocyte Esterase Moderate (2+) H Urine RBC 0-2 Urine WBC >50 H Ur Squamous Epith Cells 3-5 Urine Bacteria 4+ Hyaline Casts 11-20 Urine Opiates Screen POSITIVE H Urine Fentanyl Screen POSITIVE H Ur Barbiturates Screen Not Detected Ur Phencyclidine Scrn Not Detected Ur Amphetamines Screen Not Detected U Benzodiazepines Scrn Not Detected Urine Cocaine Screen POSITIVE H U Marijuana (THC) Screen Not Detected Ethyl Alcohol < 10 11/27/22 11/28/22 12:43 05:41 WBC 17.7 H 14.4 H RBC 3.62 L 3.43 L Hgb 12.1 L 11.5 L Hct 37.2 L 35.4 L MCV 102.8 H 103.2 H MCH 33.4 H 33.5 H MCHC 32.5 32.5 RDW 11.6 11.7 Plt Count 308 302 MPV 9.3 L 9.8 Immature Gran % (Auto) 0.5 H Neut % (Auto) 79.6 H Lymph % (Auto) 13.9 L Perkins % (Auto) 5.7 Eos % (Auto) 0.1 Baso % (Auto) 0.2 Lymph # (Auto) 2.5 Perkins # (Auto) 1.0 Eos # (Auto) 0.0 Baso # (Auto) 0.0 Abs Immat Gran (auto) 0.08 H Absolute Neuts (auto) 14.1 H Absolute Nucleated RBC 0.000 0.000 Nucleated RBC % (auto) 0.0 0.0 APTT Sodium 142 Potassium 3.7 Chloride 113 H Carbon Dioxide 21 L Anion Gap 12 BUN 8 L Creatinine 0.76 Estim Creat Clear Calc 106.0 Estimated GFR > 60 Random Glucose 73 Lactic Acid Calcium 8.3 L D Total Bilirubin AST ALT Alkaline Phosphatase Total Creatine Kinase 2891 H 2539 H Total Protein Albumin Urine Color Urine Appearance Urine pH Ur Specific [place] Urine Protein Urine Glucose (UA) Urine Ketones Urine Blood Urine Nitrite Ur Leukocyte Esterase Urine RBC Urine WBC Ur Squamous Epith Cells Urine Bacteria Hyaline Casts Urine Opiates Screen Urine Fentanyl Screen Ur Barbiturates Screen Ur Phencyclidine Scrn Ur Amphetamines Screen U Benzodiazepines Scrn Urine Cocaine Screen U Marijuana (THC) Screen Ethyl Alcohol Mental Status Exam Mental Status Exam Patient Appearance: Perspiring Level of Consciousness: Awake and Restless Patient Behavior: Appropriate Mood Description: Calm Affect Description: Calm Speech Pattern: Clear Medications Medications Current Medications Acetaminophen (Acetaminophen 325 Mg Tablet) 650 mg PO Q6H PRN PRN Reason: Pain, Mild (Pain Scale 1-3) Benzonatate (Benzonatate 100 Mg Capsule) 100 mg PO TID PRN PRN Reason: Cough Clonidine HCl (Clonidine Hcl 0.1 Mg Tablet) 0.1 mg PO DAILY [facility]; Protocol Last Admin: 11/28/22 09:33 Dose: 0.1 mg Docusate Sodium (Docusate Sodium 100 Mg Capsule) 100 mg PO DAILY PRN PRN Reason: Constipation Enoxaparin Sodium (Enoxaparin Sodium 40 Mg/0.4 Ml Syringe) 40 mg SUBCUT Q24H [facility] Last Admin: 11/27/22 17:22 Dose: Not Given Ceftriaxone Sodium 1 gm/ (Sodium Chloride) 50 mls @ 100 mls/hr IV Q24H [facility] Last Infusion: 11/28/22 11:32 Dose: Infused Sodium Chloride (Ns) 1,000 mls @ 100 mls/hr IVCONT .Q10H [facility] Last Admin: 11/28/22 04:02 Dose: 100 mls/hr Melatonin (Melatonin 3 Mg Tablet) 6 mg PO BEDTIME PRN PRN Reason: Insomnia Ondansetron HCl (Ondansetron Hcl 4 Mg/2 Ml Vial) 4 mg IVPUSH Q8H PRN PRN Reason: Nausea and Vomiting Oxycodone HCl (Oxycodone Hcl Immed Release 5 Mg Tablet) 10 mg PO Q4H PRN PRN Reason: withdrawl Sodium Chloride (0.9 % Sodium Chloride Flush 3 Ml Syringe) 3 ml IVFLUSH QSHIFT [facility] Last Admin: 11/28/22 09:33 Dose: 3 ml Allergies Allergies Allergy/AdvReac Type Severity Reaction Status Date / Time No Known Allergies Allergy Unverified 10/24/19 17:29 Assessment & Plan Assessment & Plan (1) Opioid use disorder: Status: Acute Code(s): F11.90 - Opioid use, unspecified, uncomplicated Assessment and Plan: methadone 30mg X1 will follow up to obtain pertinent history uncelar if patient wishes to continue methadone following admission, if so, rescue instructor will assist with coordination Total time managing care of this patient today 20____ minutes. PMFSH Social History Social History Household Members: None Housing: Apartment Do you presently have visiting nurse or other home services: No Patient Tobacco Use Status: Current everyday Tobacco user Cigarette Packs Per Day: 1 Cigarettes Per Day: 20.0 Substance Use Type: Crack/Cocaine service: No
[2022-11-28] MEDS: oxyCODONE HCl Immed Release 5 MG TABLET 10 MG PO (14:28)
[2022-11-28 15:33] VITALS: BP 117/62; PULSE 76; RESP 18; TEMP 36.9; O2SAT 97
[2022-11-28] MEDS: Enoxaparin Sodium 40 MG/0.4 ML SYRINGE SUBCUT (17:34)
[2022-11-28] MEDS: methADONE HCl 20 MG/2 ML ORAL.CONC 10 MG PO (17:34)
[2022-11-28 19:25] VITALS: BP 162/95; PULSE 102; RESP 18; TEMP 36.1; O2SAT 95
[2022-11-28 22:00] VITALS: BP 134/82; PULSE 74; RESP 18; TEMP 36.6; O2SAT 97
[2022-11-29 03:29] VITALS: BP 130/78; PULSE 86; RESP 18; TEMP 36.7; O2SAT 96
[2022-11-29 07:11] VITALS: BP 141/66; PULSE 75; RESP 18; TEMP 36; O2SAT 97
[2022-11-29] MEDS: cloNIDine HCL 0.1 MG TABLET PO (07:41)
[2022-11-29] MEDS: methADONE HCl 20 MG/2 ML ORAL.CONC 45 MG PO (07:42)
[2022-11-29 08:58] LABS: B Type Natriuretic Peptide 95 pg/mL (<100)
[2022-11-29 09:01] LABS: Anion Gap 16 (12-20); Blood Urea Nitrogen 7 mg/dL (9-16); Calcium 9.3 mg/dL (8.4-10.2); Carbon Dioxide 21 mmol/L (22-29); Chloride 111 mmol/L (96-108); Creatinine Clr Calc Pharmacy 103.3; Estimated Glomerular Filt Rate > 60; Glucose Random 102 mg/dL (60-115); Potassium 3.6 mmol/L (3.3-5.1); Sodium 144 mmol/L (135-145)
[2022-11-29] MEDS: cefTRIAXone sodium 1 GM in 0.9 % Sodium Chloride 50 ML IV (12:52)
[2022-11-29] MEDS: 0.9 % Sodium Chloride 1,000 ML 100 ML IVCONT (12:53)
--- NOTE | 2022-11-29 13:17 | PM.DS ---
DS: Providers Provider Date of Service: 11/29/22 Date of admission: 11/27/22 17:03 Primary care physician: Unknown Physician Consults: 11/27/22 17:48 Addiction Medicine Routine Consulting Provider: Addiction Covering Reason for consultation: Snorting cocaine and heroin daily, on a Section 12 11/29/22 07:53 Consult to Psychiatry Routine Consulting Provider: Psych Covering Reason for consultation: medically clear 11/29/22 10:25 Consult to Care Team Routine Comment: Reason for consultation: eval for psych admission DS: Diagnosis Discharge Diagnosis (1) Rhabdomyolysis: Status: Acute DS: Summary Hospital Course Hospital Course: HP as per admitting provider . Pt is a 42-year-old male with a PMH significant for?heart murmur and polysubstance use disorder who presents to the ED by EMS for evaluation of unusual behavior. Patient was apparently walking around the neighborhood and knocking on random doors when someone called the police. Patient reported to the police he had been using cocaine so they brought him to the ED for further evaluation on a Section 12. Patient currently somnolent but arousable, difficult to interview as he continually drifts to sleep before fully answering questions. HPI the us supplemented by chart and provider review. Patient has apparently been snorting 2+ g twice a day for the past 2 weeks plus an unknown amount of heroin. His tox screen was also positive for opiates and ?and fentanyl. Patient agitated when he got to the the ED, but initially cooperative for interview and exam. However, patient refused IVF and IV medications though initially agreed to taking oral medications, though he then backtracked and refused oral medications when they were presented to him. Patient then became paranoid and agitated and try to run out of the emergency department. Was stopped by security and brought back to the ED where he was placed in 4 point restraints in order to protect him from harming himself and harming staff members. Was medicated with Haldol 10 mg IM, Benadryl 50 mg IM, and Ativan 2 mg IM. During these instances patient struggled significantly. In the ED patient was afebrile but tachycardic up to 127, and tachypneic to 22. Labs were significant for leukocytosis of 19.4, H&H 11.9/35.1, CPK 1076 with repeat 5 hours later of 2891. Electrolytes WNL. Hepatic function, renal function WNL. UA positive for UTI. Tox screen positive for opiates, fentanyl, and cocaine. Ethyl alcohol < 10. EKG demonstrated sinus tachycardia [address] elevations or depressions. Pt was treated with Haldol, Ativan, Benadryl, IVF, and ceftriaxone. Pt will be admitted to the hospital for treatment and further evaluation of rhabdomyolysis and UTI. Patient is on a Section 12 and will need medical clearance before admittance to the psychiatric unit. 2-year-old man treated for drug related encephalopathy, UTI And mild rhabdomyolysis. He has a history of heavy drug use including cocaine, heroin and fentanyl. It was thought that his acute toxic metabolic encephalopathy was related to this as he was found wandering around his neighborhood knocking on doors. He was also restrained while he was in the emergency department which may have caused the rhabdomyolysis. He was treated with IV fluids CPK trending down. He was found to have an E coli UTI and was treated with IV Rocephin but will send home with 5 more days of Ceftin. He was seen evaluated addiction medicine team and started on methadone and he will follow-up at the [facility] outpatient clinic for methadone dosing. he was also seen by the care team and was cleared, and did not require an inpatient admission to psych. Patient was encouraged to stop using drugs and continue with methadone and reach out to outpatient resources for help with drug cessation. Time Spent with Patient Time attestation: Total time managing care of this patient today ____ minutes. Discharge coordination time: Greater than 30 minutes Quality: Safe Use of Opioids Does Pt have an Active Cancer Diagnosis on the Problem List?: No Quality: Stroke Does the patient have a stroke diagnosis?: No Physical Exam Vital Signs: Vital Signs: Last Vital Signs Temp 96.8 F 11/29/22 07:11 Pulse 75 11/29/22 07:11 Resp 18 11/29/22 07:11 BP 141/66 H 11/29/22 07:11 Pulse Ox 97 11/29/22 07:11 O2 Del Method Room Air 11/29/22 07:11 BMI result Body Mass Index 26.4 Appearing in no acute distress head is normocephalic atraumatic eyes pupils are PERRLA sclera is anicteric mouth throat mucous membranes are intact and moist neck is supple no lymphadenopathy, no JVD noted lung sounds are clear to auscultation heart regular rate rhythm, clear S1, S2 positive bowel sounds, abdomen is soft, nontender neuro patient is alert x3, no focal deficits DS: Data Data Completed and Pending Labs on day of discharge: Laboratory Results - last 24 hr 11/29/22 08:06 Sodium 144 Potassium 3.6 Chloride 111 H Carbon Dioxide 21 L Anion Gap 16 BUN 7 L Creatinine 0.78 Estim Creat Clear Calc 103.3 Estimated GFR > 60 Random Glucose 102 Calcium 9.3 D B-Natriuretic Peptide 95 Preliminary micro results at discharge 11/27/22 10:06 Blood Culture - Preliminary Blood - Venous No growth after 48 hours. 11/27/22 10:07 Blood Culture - Preliminary Blood - Venous No growth after 48 hours. Discharge Plan Discharge Anticipated Discharge Date/Time: 11/29/22 13:09 Patient Disposition: Home, Self-Care Discharge Diagnosis: UTI Encephalopathy secondary to drug use Mild rhabdomyolysis Referrals: Michelle Sanders, W[employer]IM[employer] CARETAKER [Nurse Practitioner] - 1 Week (Follow up methadone ) Discharge Medications: New cefuroxime axetil 500 mg tablet 500 mg PO BID Qty: 10 0RF Discharge Orders: Discharge Order (Routine); Ordered 11/29/22 Ordered By: Dilma Oro Diet: Advance to usual diet Activity on Discharge: As tolerated Stand Alone Forms: Patient Portal Discharge page Care Plan Goals: Follow-up with primary care provider as needed Do not use heroin, cocaine or fentanyl Follow up at [facility] clinic for methadone dosing Health Concerns: UTI Encephalopathy secondary to drug use Mild rhabdomyolysis Plan of Treatment: see discharge summary Assessment: See discharge summary
[2022-11-29] MEDS: methADONE HCl 20 MG/2 ML ORAL.CONC 10 MG PO (13:43)
--- NOTE | 2022-11-29 13:56 | MHC.CM.PN ---
pt dcd home no servies
--- NOTE | 2022-11-29 15:05 | HO.PM.IMPN ---
Subjective Subjective Date of Service: 11/29/22 Review of Systems Follow-up Encephalopathy, UTI, rhabdomyolysis some general body pain noted, CPK still high Physical Exam Vital Signs: Vital Signs: Last Vital Signs Temp 96.8 F 11/29/22 07:11 Pulse 75 11/29/22 07:11 Resp 18 11/29/22 07:11 BP 141/66 H 11/29/22 07:11 Pulse Ox 97 11/29/22 07:11 O2 Del Method Room Air 11/29/22 07:11 BMI result Body Mass Index 26.4 Appearing in no acute distress lung sounds are clear to auscultation heart regular rate rhythm, clear S1, S2 positive bowel sounds, abdomen is soft, nontender neuro patient is alert x3, no focal deficits Objective Data Active Medications Acetaminophen (Acetaminophen 325 Mg Tablet) 650 mg PO Q6H PRN PRN Reason: Pain, Mild (Pain Scale 1-3) Benzonatate (Benzonatate 100 Mg Capsule) 100 mg PO TID PRN PRN Reason: Cough Clonidine HCl (Clonidine Hcl 0.1 Mg Tablet) 0.1 mg PO DAILY [facility]; Protocol Last Admin: 11/29/22 07:41 Dose: 0.1 mg Documented By: AMY Docusate Sodium (Docusate Sodium 100 Mg Capsule) 100 mg PO DAILY PRN PRN Reason: Constipation Enoxaparin Sodium (Enoxaparin Sodium 40 Mg/0.4 Ml Syringe) 40 mg SUBCUT Q24H [facility] Last Admin: 11/28/22 17:34 Dose: 40 mg Documented By: ARIANNA Ceftriaxone Sodium 1 gm/ (Sodium Chloride) 50 mls @ 100 mls/hr IV Q24H [facility] Last Infusion: 11/29/22 13:34 Dose: Infused Documented By: AMY Sodium Chloride (Ns) 1,000 mls @ 100 mls/hr IVCONT .Q10H [facility] Last Infusion: 11/29/22 13:27 Dose: 0 mls/hr Documented By: AMY Lactated Ringer's (Lr) 1,000 mls @ 150 mls/hr IVCONT .Q6H40M [facility] Melatonin (Melatonin 3 Mg Tablet) 6 mg PO BEDTIME PRN PRN Reason: Insomnia Methadone HCl (Methadone Hcl 20 Mg/2 Ml Oral.Conc) 45 mg PO DAILY [facility] Last Admin: 11/29/22 07:42 Dose: 45 mg Documented By: AMY Ondansetron HCl (Ondansetron Hcl 4 Mg/2 Ml Vial) 4 mg IVPUSH Q8H PRN PRN Reason: Nausea and Vomiting Oxycodone HCl (Oxycodone Hcl Immed Release 5 Mg Tablet) 10 mg PO Q4H PRN PRN Reason: withdrawl Last Admin: 11/28/22 14:28 Dose: 10 mg Documented By: ARIANNA Sodium Chloride (0.9 % Sodium Chloride Flush 3 Ml Syringe) 3 ml IVFLUSH QSHIFT [facility] Last Admin: 11/29/22 06:19 Dose: Not Given Documented By: AMY Non-Admin Reason: IV Running Labs 11/28/22 05:41 11/29/22 08:06 Labs: Laboratory Results - last 24 hr 11/29/22 08:06 Anion Gap 16 Estim Creat Clear Calc 103.3 Estimated GFR > 60 Random Glucose 102 Calcium 9.3 D Total Creatine Kinase 3006 H B-Natriuretic Peptide 95 Microbiology Microbiology Results: Microbiology 11/27/22 10:06 Blood Culture - Preliminary Blood - Venous No growth after 48 hours. 11/27/22 10:07 Blood Culture - Preliminary Blood - Venous No growth after 48 hours. 11/27/22 Unknown Urine Culture - Final Urine clean catch - Urine rolle top Escherichia coli Assessment and Plan (1) Rhabdomyolysis: Status: Acute Plan 42-year-old male with a PMH significant for?heart murmur and polysubstance use disorder who presents to the ED by EMS for evaluation of unusual behavior. Brought in on a Section 12 and initially set on psychiatric admission. Pt it became agitated and needed to be restrained and lab showed elevated CPK and acute UTI. Pt will be admitted to the hospital for treatment and further evaluation of rhabdomyolysis and UTI. Patient is on a Section 12 and will need medical clearance before admittance to the psychiatric unit. Ecoli UTI IV ceftriaxone, started 11/27/2022 Rhabdomyolysis, diffuse body aches CPK trending up Etiology unclear: Physically struggling while restrained verses cocaine induced rhabdomyolysis LR now 150hr Recheck CPK tomorrow Acute toxic metabolic encephalopathy, Patient brought in on a Section 12 after being found wandering around the neighborhood and knocking on doors Unclear etiology: Secondary to UTI versus cocaine/heroin/fentanyl intoxication Patient initially restrained in the ED after becoming agitated and a threat to himself and staff Cleared by CARE team, no psych admission needed substance abuse addiction team consult > started on Methadone Full Code Attending:?Dr. Wyatt DVT Prophylaxis: Lovenox continue hospital stay for at least two nights for treatment of?and further evaluation of rhabdomyolysis and UTI. Pt will be treated with IVF, IV antibiotics, and need close monitoring of labs. Time Spent With Patient Time: Total time managing care of this patient today ____ minutes. Quality Stroke Does the patient have a stroke diagnosis?: No VTE Prior VTE?: No VTE Risk Level:: Medical - moderate - high VTE Device Contraindication: Treatment Not Indicated VTE Drug Contraindication: N/A - Med Ordered
[2022-11-29 15:34] VITALS: BP 132/63; PULSE 52; RESP 18; TEMP 36.2; O2SAT 98
[2022-11-29] MEDS: Lactated Ringers 1,000 ML 150 ML IVCONT ×2 (15:49→23:43)
[2022-11-29] MEDS: Enoxaparin Sodium 40 MG/0.4 ML SYRINGE SUBCUT (17:23)
[2022-11-29 19:30] VITALS: BP 128/78; PULSE 83; RESP 16; TEMP 36.9; O2SAT 98
[2022-11-30 03:40] VITALS: BP 124/84; PULSE 80; RESP 18; TEMP 36.8; O2SAT 96
[2022-11-30] MEDS: Lactated Ringers 1,000 ML 150 ML IVCONT (05:34)
--- NOTE | 2022-11-30 06:07 | PC.NURSE ---
acquired care at 3am. Pt is sleeping in bed. 1:1 sitter inside the room.
[2022-11-30 06:23] LABS: Anion Gap 14 (12-20); Blood Urea Nitrogen 8 mg/dL (9-16); Calcium 8.8 mg/dL (8.4-10.2); Carbon Dioxide 22 mmol/L (22-29); Chloride 109 mmol/L (96-108); Creatinine Clr Calc Pharmacy 108.8; Estimated Glomerular Filt Rate > 60; Glucose Random 107 mg/dL (60-115); Potassium 3.8 mmol/L (3.3-5.1); Sodium 141 mmol/L (135-145)
[2022-11-30 07:34] VITALS: BP 159/77; PULSE 54; RESP 18; TEMP 36.6; O2SAT 98
[2022-11-30] MEDS: methADONE HCl 20 MG/2 ML ORAL.CONC 45 MG PO (08:00)
[2022-11-30] MEDS: cloNIDine HCL 0.1 MG TABLET PO (08:00)
--- NOTE | 2022-11-30 09:36 | PM.DS ---
DS: Providers Provider Date of Service: 11/30/22 Date of admission: 11/27/22 17:03 Primary care physician: Unknown Physician Consults: 11/27/22 17:48 Addiction Medicine Routine Consulting Provider: Addiction Covering Reason for consultation: Snorting cocaine and heroin daily, on a Section 12 11/29/22 07:53 Consult to Psychiatry Routine Consulting Provider: Psych Covering Reason for consultation: medically clear 11/29/22 10:25 Consult to Care Team Routine Comment: Reason for consultation: eval for psych admission DS: Diagnosis Discharge Diagnosis (1) Rhabdomyolysis: Status: Acute DS: Summary Hospital Course Hospital Course: HP as per admitting provider . Pt is a 42-year-old male with a PMH significant for?heart murmur and polysubstance use disorder who presents to the ED by EMS for evaluation of unusual behavior. Patient was apparently walking around the neighborhood and knocking on random doors when someone called the police. Patient reported to the police he had been using cocaine so they brought him to the ED for further evaluation on a Section 12. Patient currently somnolent but arousable, difficult to interview as he continually drifts to sleep before fully answering questions. HPI the us supplemented by chart and provider review. Patient has apparently been snorting 2+ g twice a day for the past 2 weeks plus an unknown amount of heroin. His tox screen was also positive for opiates and ?and fentanyl. Patient agitated when he got to the the ED, but initially cooperative for interview and exam. However, patient refused IVF and IV medications though initially agreed to taking oral medications, though he then backtracked and refused oral medications when they were presented to him. Patient then became paranoid and agitated and try to run out of the emergency department. Was stopped by security and brought back to the ED where he was placed in 4 point restraints in order to protect him from harming himself and harming staff members. Was medicated with Haldol 10 mg IM, Benadryl 50 mg IM, and Ativan 2 mg IM. During these instances patient struggled significantly. In the ED patient was afebrile but tachycardic up to 127, and tachypneic to 22. Labs were significant for leukocytosis of 19.4, H&H 11.9/35.1, CPK 1076 with repeat 5 hours later of 2891. Electrolytes WNL. Hepatic function, renal function WNL. UA positive for UTI. Tox screen positive for opiates, fentanyl, and cocaine. Ethyl alcohol < 10. EKG demonstrated sinus tachycardia [address] elevations or depressions. Pt was treated with Haldol, Ativan, Benadryl, IVF, and ceftriaxone. Pt will be admitted to the hospital for treatment and further evaluation of rhabdomyolysis and UTI. Patient is on a Section 12 and will need medical clearance before admittance to the psychiatric unit. 2-year-old man treated for drug related encephalopathy, UTI And mild rhabdomyolysis. He has a history of heavy drug use including cocaine, heroin and fentanyl. It was thought that his acute toxic metabolic encephalopathy was related to this as he was found wandering around his neighborhood knocking on doors. He was also restrained while he was in the emergency department which may have caused the rhabdomyolysis. He was treated with IV fluids CPK trending down. He was found to have an E coli UTI and was treated with IV Rocephin but will send home with 5 more days of Ceftin. He was seen evaluated addiction medicine team and started on methadone and he will follow-up at the [facility] outpatient clinic for methadone dosing. he was also seen by the care team and was cleared, and did not require an inpatient admission to psych. Patient was encouraged to stop using drugs and continue with methadone and reach out to outpatient resources for help with drug cessation. Time Spent with Patient Time attestation: Total time managing care of this patient today ____ minutes. Discharge coordination time: Greater than 30 minutes Quality: Safe Use of Opioids Does Pt have an Active Cancer Diagnosis on the Problem List?: No Quality: Stroke Does the patient have a stroke diagnosis?: No Physical Exam Vital Signs: Vital Signs: Last Vital Signs Temp 98 F 11/30/22 07:34 Pulse 54 11/30/22 07:34 Resp 18 11/30/22 07:34 BP 159/77 H 11/30/22 07:34 Pulse Ox 98 11/30/22 07:34 O2 Del Method Room Air 11/30/22 07:34 BMI result Body Mass Index 26.4 Appearing in no acute distress lung sounds are clear to auscultation heart regular rate rhythm, clear S1, S2 positive bowel sounds, abdomen is soft, nontender neuro patient is alert x3, no focal deficits DS: Data Data Completed and Pending Labs on day of discharge: Laboratory Results - last 24 hr 11/29/22 11/30/22 08:06 05:12 Hold Purple Top SEE NOTE Sodium 141 Potassium 3.8 Chloride 109 H Carbon Dioxide 22 Anion Gap 14 BUN 8 L Creatinine 0.74 Estim Creat Clear Calc 108.8 Estimated GFR > 60 Random Glucose 107 Calcium 8.8 Total Creatine Kinase 3006 H 1199 H Preliminary micro results at discharge 11/27/22 10:06 Blood Culture - Preliminary Blood - Venous No growth after 48 hours. 11/27/22 10:07 Blood Culture - Preliminary Blood - Venous No growth after 48 hours. Discharge Plan Discharge Anticipated Discharge Date/Time: 11/29/22 13:09 Patient Disposition: Home, Self-Care Discharge Diagnosis: UTI Encephalopathy secondary to drug use Mild rhabdomyolysis Referrals: Michelle Sanders, RETAIL ACCOUNT MANAGER [Nurse Practitioner] - 1 Week (Follow up methadone ) Discharge Medications: New cefuroxime axetil 500 mg tablet 500 mg PO BID Qty: 10 0RF Discharge Orders: Discharge Order (Routine); Ordered 11/30/22 Ordered By: Jermaine Torres Diet: Advance to usual diet Activity on Discharge: As tolerated Stand Alone Forms: Patient Portal Discharge page Care Plan Goals: Follow-up with primary care provider as needed Do not use heroin, cocaine or fentanyl Follow up at [facility] clinic for methadone dosing Health Concerns: UTI Encephalopathy secondary to drug use Mild rhabdomyolysis Plan of Treatment: see discharge summary Assessment: See discharge summary Discharge Date/Time: 11/30/22 10:43
--- NOTE | 2022-11-30 09:52 | MHC.CM.PN ---
pt dcd home no skilled services
--- NOTE | 2022-11-30 11:10 | MHC.RECOVRN ---
Pts referral sent to [facility]. Plan for pt to present to [facility] tomorrow.
== END 2022-11-30 10:43 | disposition home or self-care (01) | DRG 816 ==
LOC: HO.ED 13:41 → HO.EDOVER 17:24 → HO.S3 23:22
PROVIDERS: Emergency Medicine; Nurse Practitioner Acute Care; Admitting Provider Student in an Organized Health Care Education/Training Program; Emergency Provider Emergency Medicine Emergency Medical Services; Visit Provider Internal Medicine
DX: T40.5X1A Poisoning by cocaine, accidental (unintentional), initial encounter (principal); G92.8 Other toxic encephalopathy; M62.82 Rhabdomyolysis; F14.90 Cocaine use, unspecified, uncomplicated; F19.90 Other psychoactive substance use, unspecified, uncomplicated; N39.0 Urinary tract infection, site not specified; F17.210 Nicotine dependence, cigarettes, uncomplicated; Z71.6 Tobacco abuse counseling; Z78.1 Physical restraint status; B96.20 Unspecified Escherichia coli [E. coli] as the cause of diseases classified elsewhere
CPT/HCPCS: 36415; 80048; 80053; 80307; 81001; 82550; 83605; 83880; 85025; 85027; 85730; 87040; 87086; 87088; 87186; 93005; 99285; J0696; J1200; J1650; J2060; S9485

== ENCOUNTER → 2022-11-27 17:03 | Outpatient (BNV) | payer OTHER, SELFPAY | PROVIDERS: Admitting Provider Student in an Organized Health Care Education/Training Program; Emergency Provider Emergency Medicine Emergency Medical Services; Visit Provider Student in an Organized Health Care Education/Training Program | DX: M62.82 Rhabdomyolysis (principal) | CPT/HCPCS: 99223; 99232; 99239 ==

== ENCOUNTER → 2022-11-27 17:03 | Outpatient (BNV) | payer OTHER, SELFPAY | PROVIDERS: Admitting Provider Student in an Organized Health Care Education/Training Program; Emergency Provider Emergency Medicine Emergency Medical Services; Visit Provider Nurse Practitioner Psychiatric/Mental Health | DX: F11.90 Opioid use, unspecified, uncomplicated (principal) | CPT/HCPCS: 99222; 99231 ==